=== PATIENT | male | born 1960 | race African-American/Black ===

== ENCOUNTER 2018-10-01 18:11 | Emergency (ER) | payer OTHER, MEDICAID, SELFPAY ==
[2018-10-01 18:27] VITALS: BP 146/101; PULSE 111; RESP 22; TEMP 36.7; O2SAT 98
--- NOTE | 2018-10-01 18:49 | ED.ABDPAIN ---
HPI - Abdominal Pain <MATHEUS Trejo Last Filed: 10/01/18 22:20> General Chief Complaint: Abdominal Pain Stated Complaint: severe pain on the right side Time Seen by Provider: 10/01/18 18:35 Source: patient Mode of arrival: ambulatory Limitations: no limitations History of Present Illness HPI narrative: this 57-year-old male comes to ED secondary to abdominal pain. He states that this seems fairly localized in the right lower quadrant. He states that it was tolerable the 1st couple of days, seemed to resolve yesterday, but now has come back with a vengeance today and he describes this as excruciating. He states that pain is a little bit better lying down, worse when moving and walking and present constantly. He states he has had a little bit of nausea but no vomiting (a just prior to arrival and has normal intake the last few days ). He denies fever. He denies any new urinary symptoms or hematuria. He denies diarrhea. He states that he maybe has had a little bit of constipation this week but had a bowel movement this morning. No blood in the stools. He denies chest pain, dyspnea, swelling in the extremities or other new complaints on systems review. Related Data Home Medications Medication Instructions Recorded Confirmed IBUPROFEN (Motrin / Advil) 600 mg PO #0 01/29/06 Naproxen Sodium (Naprosyn) 0 PO * DOSE/FREQUENCY #0 01/29/06 Previous Rx's Medication Instructions Recorded diazepam [Valium] 10 mg PO TIDP PRN #10 tab 12/16/16 meloxicam [Mobic] 7.5 mg PO BIDCC PRN #20 tab 12/16/16 amoxicillin-pot clavulanate 1 tab PO Q12H #20 tab 10/01/18 Allergies Allergy/AdvReac Type Severity Reaction Status Date / Time acetaminophen [From ROXICET] AdvReac Mild NAUSEA Verified 10/01/18 19:03 oxycodone [From ROXICET] AdvReac Mild NAUSEA Verified 10/01/18 19:03 Review of Systems <MATHEUS Trejo Last Filed: 10/01/18 22:20> Review of Systems ROS Unobtainable: All systems reviewed & are unremarkable except as noted in HPI and below PFSH <MATHEUS Trejo Last Filed: 10/01/18 22:20> Medical History History of osteoarthritis (Chronic) History of hepatitis C (Chronic) Surgical History Status post total replacement of hip (Chronic) Status post cervical spinal fusion (Chronic) Social History Smoking Status: Current every day smoker alcohol intake: current Social History Smoking Status: Current every day smoker alcohol intake: current Exam <Ava Chiang PA-C - Last Filed: 10/01/18 22:20> Initial Vital Signs Initial Vital Signs: Vital Signs Temperature 98.0 F 10/01/18 18:27 Pulse Rate 111 H 10/01/18 18:27 Respiratory Rate 22 10/01/18 18:27 Blood Pressure 146/101 H 10/01/18 18:27 Pulse Oximetry 98 10/01/18 18:27 GENERAL APPEARANCE: Patient sitting comfortably, in no distress. HEENT: PERRL, EOMI, no scleral icterus NECK: Supple LUNGS: Clear to auscultation bilaterally. HEART: Rate and rhythm regular, normal S1 and S2, no S3 or S4. ABDOMEN: Soft, nondistended, bowel sounds present x 4 quadrants, no masses palpable, no hepatosplenomegaly. moderate midline to right lower quadrant tenderness without guarding or rebound EXTREMITIES: No edema, no calf tenderness DERMATOLOGIC: No jaundice or exanthem NEUROLOGIC: Alert and oriented with normal speech and coordination <Ronnie Cordova MD - Last Filed: 10/02/18 04:42> Initial Vital Signs Initial Vital Signs: Vital Signs Temperature 98.0 F 10/01/18 18:27 Pulse Rate 111 H 10/01/18 18:27 Respiratory Rate 22 10/01/18 18:27 Blood Pressure 146/101 H 10/01/18 18:27 Pulse Oximetry 98 10/01/18 18:27 Course <Ava Chiang PA-C - Last Filed: 10/01/18 22:20> Additional Information: Patient reports significant improvement in symptoms and feels comfortable at the time of discharge. Reviewed lab work and CT findings with attending Dr. Cordova who suspects duodenitis, possibly viral but advised covering with antibiotics. First dose of Augmentin given here and patient was given a prescription. He agrees to call PCP 1st thing in the morning for follow-up. He agreed to return if any acutely worsening symptoms or new symptoms such as fever or vomiting in the interim. Orders Ordered: Discontinued Medications Amoxicillin/Clavulanate Potassium (Augmentin 875-125 Mg) 1 tab PO NOW ONE Stop: 10/01/18 21:01 Last Admin: 10/01/18 21:04 Dose: 1 tab Hydromorphone HCl (Dilaudid) 0.5 mg IV NOW ONE Stop: 10/01/18 19:41 Last Admin: 10/01/18 19:47 Dose: 0.5 mg Sodium Chloride (Normal Saline 0.9%) 500 mls @ 1,000 mls/hr IV BOLUS ONE Stop: 10/01/18 19:28 Last Infusion: 10/01/18 19:47 Dose: 0 mls/hr Admin: 10/01/18 19:08 Dose: 1,000 mls/hr Ketorolac Tromethamine (Toradol) 30 mg IV NOW ONE Stop: 10/01/18 19:00 Last Admin: 10/01/18 19:07 Dose: 30 mg Ondansetron HCl (Zofran) 4 mg IV NOW ONE Stop: 10/01/18 19:00 Last Admin: 10/01/18 19:07 Dose: 4 mg Vital Signs - 8 hr 10/01/18 21:13 10/01/18 21:31 Temperature 98.3 F Pulse Rate 106 H 105 H Respiratory Rate 17 18 Blood Pressure 135/88 Blood Pressure [Left Arm] 135/88 Pulse Oximetry 94 94 <Ronnie Cordova MD - Last Filed: 10/02/18 04:42> Orders Ordered: Discontinued Medications Amoxicillin/Clavulanate Potassium (Augmentin 875-125 Mg) 1 tab PO NOW ONE Stop: 10/01/18 21:01 Last Admin: 10/01/18 21:04 Dose: 1 tab Hydromorphone HCl (Dilaudid) 0.5 mg IV NOW ONE Stop: 10/01/18 19:41 Last Admin: 10/01/18 19:47 Dose: 0.5 mg Sodium Chloride (Normal Saline 0.9%) 500 mls @ 1,000 mls/hr IV BOLUS ONE Stop: 10/01/18 19:28 Last Infusion: 10/01/18 19:47 Dose: 0 mls/hr Admin: 10/01/18 19:08 Dose: 1,000 mls/hr Ketorolac Tromethamine (Toradol) 30 mg IV NOW ONE Stop: 10/01/18 19:00 Last Admin: 10/01/18 19:07 Dose: 30 mg Ondansetron HCl (Zofran) 4 mg IV NOW ONE Stop: 10/01/18 19:00 Last Admin: 10/01/18 19:07 Dose: 4 mg Vital Signs - 8 hr 10/01/18 21:13 10/01/18 21:31 Temperature 98.3 F Pulse Rate 106 H 105 H Respiratory Rate 17 18 Blood Pressure 135/88 Blood Pressure [Left Arm] 135/88 Pulse Oximetry 94 94 MDM - Abdominal Pain <Ava Chiang PA-C - Last Filed: 10/01/18 22:20> Lab Data Result diagrams: 10/01/18 19:01 10/01/18 19:01 Lab Results 10/01/18 10/01/18 Range/Units 19:01 19:01 WBC 6.4 (4.5-11.0) X10^3/uL RBC 4.78 (4.5-5.9) X10^6/uL Hgb 14.6 (13.5-17.5) g/dL Hct 44.4 (41-53) % MCV 93.0 (80-100) fL MCH 30.6 (26-34) PG MCHC 32.9 (30-36) % RDW 13.6 (11.6-14.8) % Plt Count 219 (150-400) X10^3/uL Neut % (Auto) Not Reportable Lymph % (Auto) Not Reportable [place] % (Auto) Not Reportable Eos % (Auto) Not Reportable Baso % (Auto) Not Reportable Lymph # (Auto) Not Reportable [place] # (Auto) Not Reportable Baso # (Auto) Not Reportable Total Counted 100 Seg Neutrophils % 43.0 (38-70) % Lymphocytes % (Manual) 39.0 (25-45) % Atypical Lymphs % 9.0 H ( - 0) % Monocytes % (Manual) 6.0 (2-11) % Eosinophils % (Manual) 3.0 (2-4) % Neutrophils # (Manual) 2752 L (7324-8786) /uL RBC Morphology Normal morphology Sodium 138 (137-145) mmol/L Potassium 3.7 (3.4-5.1) mmol/L Chloride 102 (98-107) mmol/L Carbon Dioxide 27 (22-32) mmol/L BUN 18 (9-20) mg/dL Creatinine 0.90 (0.66-1.25) mg/dL Estimated GFR > 60.0 (>60) mL/min BUN/Creatinine Ratio 20.0 (6-22) Glucose 141 H (70-100) mg/dL Calcium 9.1 (8.4-10.2) mg/dL Total Bilirubin 0.9 (0.2-1.3) mg/dL AST 70 H (17-59) IU/L ALT 59 (21-72) IU/L Alkaline Phosphatase 77 (38-126) U/L Total Protein 7.8 (6.3-8.2) g/dL Albumin 4.4 (3.5-5.0) g/dL Globulin 3.4 (1.7-4.1) g/dL Albumin/Globulin Ratio 1.3 (1.0-2.8) Lipase 23 (23-300) U/L Imaging Data CT scan - abdomen: Radiologist's impression: 31 Ava Chiang PA-C Find Patient Imaging Felipe Miller 57 M 1960 ACTIVITY DATE EXAM STATUS AUTHOR 10/01/18 19:00 [place] [address] CT Scan Report Signed Patient: Felipe Miller [facility]#: [id number] : 1960Acct:[id number] Age/Sex: 57 / MDate of Service: 10/01/18 Loc: ED Accession Number: [id number] Procedure: CT abdomen pelvis w con Ordering Provider: Ava Chiang P.A-C PROCEDURE: CT ABDOMEN PELVIS W CON INDICATIONS: RLQ pain TECHNIQUE: After the administration of intravenous contrast, 5 mm thick sections acquired from the diaphragm to the symphysis. 5 mm coronal and sagittal reformats were acquired. For radiation dose reduction, the following was used: automated exposure control, adjustment of mA and/or kV according to patient size. COMPARISON: None. FINDINGS: Image quality: Excellent. ABDOMEN: Lung bases: Lung bases are clear. Heart size is normal. Solid organs: Liver is normal in size and enhancement. Gallbladder is within normal limits. Biliary system is non dilated. Pancreas enhances normally. Spleen is normal in size and enhancement. No adrenal nodules. Kidneys demonstrate normal size and enhancement, without hydronephrosis. Peritoneum and bowel: Evaluation is limited secondary to omission of oral contrast. There is possible small bowel thickening within the duodenum and proximal small bowel within the left hemiabdomen.. No free fluid or air. Normal appendix. Nodes and vessels: No retroperitoneal or mesenteric adenopathy by size criteria. Aorta and inferior vena cava are normal in size. Miscellaneous: No ventral hernias. PELVIS: Genitourinary: Bladder wall thickness is normal. Miscellaneous: No inguinal hernias or adenopathy. Bones: No suspicious bony lesions. Severe right and mild left hip joint osteoarthritis. Bilateral L5-S1 pars interarticularis defects. Grade 1 anterolisthesis of L5 on S1. No vertebral body compression fractures. IMPRESSION: 1. Limited evaluation secondary to lack of oral contrast. 2. Normal appendix. 3. Small bowel thickening versus nondistention. Differential considerations include ischemia, infection, and inflammation. 4. Grade I isthmic spondylolisthesis at L5-S1. Dictated by: Saranya Hernandez M.D. on 10/01/2018 at 20:15 Approved by: Saranya Hernandez M.D. on 10/01/2018 at 20:17 <Ronnie Cordova MD - Last Filed: 10/02/18 04:42> Lab Data Lab Results 10/01/18 10/01/18 Range/Units 19:01 19:01 WBC 6.4 (4.5-11.0) X10^3/uL RBC 4.78 (4.5-5.9) X10^6/uL Hgb 14.6 (13.5-17.5) g/dL Hct 44.4 (41-53) % MCV 93.0 (80-100) fL MCH 30.6 (26-34) PG MCHC 32.9 (30-36) % RDW 13.6 (11.6-14.8) % Plt Count 219 (150-400) X10^3/uL Neut % (Auto) Not Reportable Lymph % (Auto) Not Reportable [place] % (Auto) Not Reportable Eos % (Auto) Not Reportable Baso % (Auto) Not Reportable Lymph # (Auto) Not Reportable [place] # (Auto) Not Reportable Baso # (Auto) Not Reportable Total Counted 100 Seg Neutrophils % 43.0 (38-70) % Lymphocytes % (Manual) 39.0 (25-45) % Atypical Lymphs % 9.0 H ( - 0) % Monocytes % (Manual) 6.0 (2-11) % Eosinophils % (Manual) 3.0 (2-4) % Neutrophils # (Manual) 2752 L (4130-7426) /uL RBC Morphology Normal morphology Sodium 138 (137-145) mmol/L Potassium 3.7 (3.4-5.1) mmol/L Chloride 102 (98-107) mmol/L Carbon Dioxide 27 (22-32) mmol/L BUN 18 (9-20) mg/dL Creatinine 0.90 (0.66-1.25) mg/dL Estimated GFR > 60.0 (>60) mL/min BUN/Creatinine Ratio 20.0 (6-22) Glucose 141 H (70-100) mg/dL Calcium 9.1 (8.4-10.2) mg/dL Total Bilirubin 0.9 (0.2-1.3) mg/dL AST 70 H (17-59) IU/L ALT 59 (21-72) IU/L Alkaline Phosphatase 77 (38-126) U/L Total Protein 7.8 (6.3-8.2) g/dL Albumin 4.4 (3.5-5.0) g/dL Globulin 3.4 (1.7-4.1) g/dL Albumin/Globulin Ratio 1.3 (1.0-2.8) Lipase 23 (23-300) U/L Discharge Plan Departure Patient Disposition: Home Clinical Impression: Acute duodenitis Discharge Date/Time: 10/01/18 21:33 Interventions: ED Discharge Assessment Last Done: 10/01/18 21:31 Instructions: DI for Duodenitis Activity Restrictions/Additional Instructions: please return if you have any acute worsening symptoms again, i.e. acutely worsening pain, or new symptoms such as fever or vomiting. We have given you the 1st dose of oral antibiotic tonight. Please pick the rest up 1st thing in the morning when the pharmacy opens ( I have sent it to [facility] in [place] for you). Please call your PCP 1st thing in the morning and let them know you were seen in the ED tonight with abdominal pain and need to be seen for follow-up, as we prefer repeat exams of abdominal pain daily. You can take [id number] Aleve or ibuprofen (2 tablets of Aleve every 12 hr or 4 tablets of ibuprofen every 8 hr is equivalent to prescription dosing ). Please drink clear fluids and eat a very bland diet, i.e. bananas, rice, applesauce, white toast, clear broths Prescriptions: New amoxicillin-pot clavulanate 875-125 mg tablet 1 tab PO Q12H Qty: 20 RF: 0 No Action IBUPROFEN (Motrin / Advil) 600 mg PO Qty: 0 RF: 0 Naproxen Sodium (Naprosyn) PO *[place] DOSE/FREQUENCY Qty: 0 RF: 0 meloxicam [Mobic] 7.5 MG tablet 7.5 mg PO BIDCC PRNQty: 20 RF: 0 diazepam [Valium] 10 MG tablet 10 mg PO TIDP PRNQty: 10 RF: 0 Referrals: Patrica Martinez [Non-Staff] - <Ronnie Cordova MD - Last Filed: 10/02/18 04:42> Cosign ED Attending Cosreynaature Attestation: I was in the ER at the time of this patient's care. I was available for assistance if needed. I agree with the assessment and treatment plan.
--- NOTE | 2018-10-01 19:00 | DI.CT.S_ITS ---
PROCEDURE: CT ABDOMEN PELVIS W CON INDICATIONS: RLQ pain TECHNIQUE: After the administration of intravenous contrast, 5 mm thick sections acquired from the diaphragm to the symphysis. 5 mm coronal and sagittal reformats were acquired. For radiation dose reduction, the following was used: automated exposure control, adjustment of mA and/or kV according to patient size. COMPARISON: None. FINDINGS: Image quality: Excellent. ABDOMEN: Lung bases: Lung bases are clear. Heart size is normal. Solid organs: Liver is normal in size and enhancement. Gallbladder is within normal limits. Biliary system is non dilated. Pancreas enhances normally. Spleen is normal in size and enhancement. No adrenal nodules. Kidneys demonstrate normal size and enhancement, without hydronephrosis. Peritoneum and bowel: Evaluation is limited secondary to omission of oral contrast. There is possible small bowel thickening within the duodenum and proximal small bowel within the left hemiabdomen.. No free fluid or air. Normal appendix. Nodes and vessels: No retroperitoneal or mesenteric adenopathy by size criteria. Aorta and inferior vena cava are normal in size. Miscellaneous: No ventral hernias. PELVIS: Genitourinary: Bladder wall thickness is normal. Miscellaneous: No inguinal hernias or adenopathy. Bones: No suspicious bony lesions. Severe right and mild left hip joint osteoarthritis. Bilateral L5-S1 pars interarticularis defects. Grade 1 anterolisthesis of L5 on S1. No vertebral body compression fractures. IMPRESSION: 1. Limited evaluation secondary to lack of oral contrast. 2. Normal appendix. 3. Small bowel thickening versus nondistention. Differential considerations include ischemia, infection, and inflammation. 4. Grade I isthmic spondylolisthesis at L5-S1. Dictated by: Saranya Hernandez M.D. on 10/01/2018 at 20:15 Approved by: Saranya Hernandez M.D. on 10/01/2018 at 20:17
[2018-10-01] MEDS: ONDANSETRON 4 MG/2 ML INJ IV (19:07)
[2018-10-01] MEDS: KETOROLAC 60 MG/2 ML VIAL 30 MG IV (19:07)
--- NOTE | 2018-10-01 19:07 | ED_ITS ---
HPI - Abdominal Pain <MATHEUS Trejo Last Filed: 10/01/18 22:20> General Chief Complaint: Abdominal Pain Stated Complaint: severe pain on the right side Time Seen by Provider: 10/01/18 18:35 Source: patient Mode of arrival: ambulatory Limitations: no limitations History of Present Illness HPI narrative: this 57-year-old male comes to ED secondary to abdominal pain. He states that this seems fairly localized in the right lower quadrant. He states that it was tolerable the 1st couple of days, seemed to resolve yesterday, but now has come back with a vengeance today and he describes this as excruciating. He states that pain is a little bit better lying down, worse when moving and walking and present constantly. He states he has had a little bit of nausea but no vomiting (a just prior to arrival and has normal intake the last few days ). He denies fever. He denies any new urinary symptoms or hematuria. He denies diarrhea. He states that he maybe has had a little bit of constipation this week but had a bowel movement this morning. No blood in the stools. He denies chest pain, dyspnea, swelling in the extremities or other new complaints on systems review. Related Data Home Medications Medication Instructions Recorded Confirmed IBUPROFEN (Motrin / Advil) 600 mg PO #0 01/29/06 Naproxen Sodium (Naprosyn) 0 PO * DOSE/FREQUENCY #0 01/29/06 Previous Rx's Medication Instructions Recorded diazepam [Valium] 10 mg PO TIDP PRN #10 tab 12/16/16 meloxicam [Mobic] 7.5 mg PO BIDCC PRN #20 tab 12/16/16 amoxicillin-pot clavulanate 1 tab PO Q12H #20 tab 10/01/18 Allergies Allergy/AdvReac Type Severity Reaction Status Date / Time acetaminophen [From ROXICET] AdvReac Mild NAUSEA Verified 10/01/18 19:03 oxycodone [From ROXICET] AdvReac Mild NAUSEA Verified 10/01/18 19:03 Review of Systems <MATHEUS Trejo Last Filed: 10/01/18 22:20> Review of Systems ROS Unobtainable: All systems reviewed & are unremarkable except as noted in HPI and below PFSH <MATHEUS Trejo Last Filed: 10/01/18 22:20> Medical History History of osteoarthritis (Chronic) History of hepatitis C (Chronic) Surgical History Status post total replacement of hip (Chronic) Status post cervical spinal fusion (Chronic) Social History Smoking Status: Current every day smoker alcohol intake: current Social History Smoking Status: Current every day smoker alcohol intake: current Exam <Ava Chiang PA-C - Last Filed: 10/01/18 22:20> Initial Vital Signs Initial Vital Signs: Vital Signs Temperature 98.0 F 10/01/18 18:27 Pulse Rate 111 H 10/01/18 18:27 Respiratory Rate 22 10/01/18 18:27 Blood Pressure 146/101 H 10/01/18 18:27 Pulse Oximetry 98 10/01/18 18:27 GENERAL APPEARANCE: Patient sitting comfortably, in no distress. HEENT: PERRL, EOMI, no scleral icterus NECK: Supple LUNGS: Clear to auscultation bilaterally. HEART: Rate and rhythm regular, normal S1 and S2, no S3 or S4. ABDOMEN: Soft, nondistended, bowel sounds present x 4 quadrants, no masses palpable, no hepatosplenomegaly. moderate midline to right lower quadrant tenderness without guarding or rebound EXTREMITIES: No edema, no calf tenderness DERMATOLOGIC: No jaundice or exanthem NEUROLOGIC: Alert and oriented with normal speech and coordination <Ronnie Cordova MD - Last Filed: 10/02/18 04:42> Initial Vital Signs Initial Vital Signs: Vital Signs Temperature 98.0 F 10/01/18 18:27 Pulse Rate 111 H 10/01/18 18:27 Respiratory Rate 22 10/01/18 18:27 Blood Pressure 146/101 H 10/01/18 18:27 Pulse Oximetry 98 10/01/18 18:27 Course <Ava Chiang PA-C - Last Filed: 10/01/18 22:20> Additional Information: Patient reports significant improvement in symptoms and feels comfortable at the time of discharge. Reviewed lab work and CT findings with attending Dr. Cordova who suspects duodenitis, possibly viral but advised covering with antibiotics. First dose of Augmentin given here and patient was given a prescription. He agrees to call PCP 1st thing in the morning for follow-up. He agreed to return if any acutely worsening symptoms or new symptoms such as fever or vomiting in the interim. Orders Ordered: Discontinued Medications Amoxicillin/Clavulanate Potassium (Augmentin 875-125 Mg) 1 tab PO NOW ONE Stop: 10/01/18 21:01 Last Admin: 10/01/18 21:04 Dose: 1 tab Hydromorphone HCl (Dilaudid) 0.5 mg IV NOW ONE Stop: 10/01/18 19:41 Last Admin: 10/01/18 19:47 Dose: 0.5 mg Sodium Chloride (Normal Saline 0.9%) 500 mls @ 1,000 mls/hr IV BOLUS ONE Stop: 10/01/18 19:28 Last Infusion: 10/01/18 19:47 Dose: 0 mls/hr Admin: 10/01/18 19:08 Dose: 1,000 mls/hr Ketorolac Tromethamine (Toradol) 30 mg IV NOW ONE Stop: 10/01/18 19:00 Last Admin: 10/01/18 19:07 Dose: 30 mg Ondansetron HCl (Zofran) 4 mg IV NOW ONE Stop: 10/01/18 19:00 Last Admin: 10/01/18 19:07 Dose: 4 mg Vital Signs - 8 hr 10/01/18 21:13 10/01/18 21:31 Temperature 98.3 F Pulse Rate 106 H 105 H Respiratory Rate 17 18 Blood Pressure 135/88 Blood Pressure [Left Arm] 135/88 Pulse Oximetry 94 94 <Ronnie Cordova MD - Last Filed: 10/02/18 04:42> Orders Ordered: Discontinued Medications Amoxicillin/Clavulanate Potassium (Augmentin 875-125 Mg) 1 tab PO NOW ONE Stop: 10/01/18 21:01 Last Admin: 10/01/18 21:04 Dose: 1 tab Hydromorphone HCl (Dilaudid) 0.5 mg IV NOW ONE Stop: 10/01/18 19:41 Last Admin: 10/01/18 19:47 Dose: 0.5 mg Sodium Chloride (Normal Saline 0.9%) 500 mls @ 1,000 mls/hr IV BOLUS ONE Stop: 10/01/18 19:28 Last Infusion: 10/01/18 19:47 Dose: 0 mls/hr Admin: 10/01/18 19:08 Dose: 1,000 mls/hr Ketorolac Tromethamine (Toradol) 30 mg IV NOW ONE Stop: 10/01/18 19:00 Last Admin: 10/01/18 19:07 Dose: 30 mg Ondansetron HCl (Zofran) 4 mg IV NOW ONE Stop: 10/01/18 19:00 Last Admin: 10/01/18 19:07 Dose: 4 mg Vital Signs - 8 hr 10/01/18 21:13 10/01/18 21:31 Temperature 98.3 F Pulse Rate 106 H 105 H Respiratory Rate 17 18 Blood Pressure 135/88 Blood Pressure [Left Arm] 135/88 Pulse Oximetry 94 94 MDM - Abdominal Pain <Ava Chiang PA-C - Last Filed: 10/01/18 22:20> Lab Data Result diagrams: 10/01/18 19:01 10/01/18 19:01 Lab Results 10/01/18 10/01/18 Range/Units 19:01 19:01 WBC 6.4 (4.5-11.0) X10^3/uL RBC 4.78 (4.5-5.9) X10^6/uL Hgb 14.6 (13.5-17.5) g/dL Hct 44.4 (41-53) % MCV 93.0 (80-100) fL MCH 30.6 (26-34) PG MCHC 32.9 (30-36) % RDW 13.6 (11.6-14.8) % Plt Count 219 (150-400) X10^3/uL Neut % (Auto) Not Reportable Lymph % (Auto) Not Reportable Towns % (Auto) Not Reportable Eos % (Auto) Not Reportable Baso % (Auto) Not Reportable Lymph # (Auto) Not Reportable [place] # (Auto) Not Reportable Baso # (Auto) Not Reportable Total Counted 100 Seg Neutrophils % 43.0 (38-70) % Lymphocytes % (Manual) 39.0 (25-45) % Atypical Lymphs % 9.0 H ( - 0) % Monocytes % (Manual) 6.0 (2-11) % Eosinophils % (Manual) 3.0 (2-4) % Neutrophils # (Manual) 2752 L (4342-8231) /uL RBC Morphology Normal morphology Sodium 138 (137-145) mmol/L Potassium 3.7 (3.4-5.1) mmol/L Chloride 102 (98-107) mmol/L Carbon Dioxide 27 (22-32) mmol/L BUN 18 (9-20) mg/dL Creatinine 0.90 (0.66-1.25) mg/dL Estimated GFR > 60.0 (>60) mL/min BUN/Creatinine Ratio 20.0 (6-22) Glucose 141 H (70-100) mg/dL Calcium 9.1 (8.4-10.2) mg/dL Total Bilirubin 0.9 (0.2-1.3) mg/dL AST 70 H (17-59) IU/L ALT 59 (21-72) IU/L Alkaline Phosphatase 77 (38-126) U/L Total Protein 7.8 (6.3-8.2) g/dL Albumin 4.4 (3.5-5.0) g/dL Globulin 3.4 (1.7-4.1) g/dL Albumin/Globulin Ratio 1.3 (1.0-2.8) Lipase 23 (23-300) U/L Imaging Data CT scan - abdomen: Radiologist's impression: 31 Ava Chiang PA-C Find Patient Imaging Felipe Miller 57 M 1960 ACTIVITY DATE EXAM STATUS AUTHOR 10/01/18 19:00 [place] [address] CT Scan Report Signed Patient: Felipe Miller [facility]#: [id number] : 1960Acct:[id number] Age/Sex: 57 / MDate of Service: 10/01/18 Loc: ED Accession Number: [id number] Procedure: CT abdomen pelvis w con Ordering Provider: Ava Chiang P.A-C PROCEDURE: CT ABDOMEN PELVIS W CON INDICATIONS: RLQ pain TECHNIQUE: After the administration of intravenous contrast, 5 mm thick sections acquired from the diaphragm to the symphysis. 5 mm coronal and sagittal reformats were acquired. For radiation dose reduction, the following was used: automated exposure control, adjustment of mA and/or kV according to patient size. COMPARISON: None. FINDINGS: Image quality: Excellent. ABDOMEN: Lung bases: Lung bases are clear. Heart size is normal. Solid organs: Liver is normal in size and enhancement. Gallbladder is within normal limits. Biliary system is non dilated. Pancreas enhances normally. Spleen is normal in size and enhancement. No adrenal nodules. Kidneys demonstrate normal size and enhancement, without hydronephrosis. Peritoneum and bowel: Evaluation is limited secondary to omission of oral contrast. There is possible small bowel thickening within the duodenum and proximal small bowel within the left hemiabdomen.. No free fluid or air. Normal appendix. Nodes and vessels: No retroperitoneal or mesenteric adenopathy by size criteria. Aorta and inferior vena cava are normal in size. Miscellaneous: No ventral hernias. PELVIS: Genitourinary: Bladder wall thickness is normal. Miscellaneous: No inguinal hernias or adenopathy. Bones: No suspicious bony lesions. Severe right and mild left hip joint osteoarthritis. Bilateral L5-S1 pars interarticularis defects. Grade 1 anterolisthesis of L5 on S1. No vertebral body compression fractures. IMPRESSION: 1. Limited evaluation secondary to lack of oral contrast. 2. Normal appendix. 3. Small bowel thickening versus nondistention. Differential considerations include ischemia, infection, and inflammation. 4. Grade I isthmic spondylolisthesis at L5-S1. Dictated by: Saranya Hernandez M.D. on 10/01/2018 at 20:15 Approved by: Saranya Hernandez M.D. on 10/01/2018 at 20:17 <Ronnie Cordova MD - Last Filed: 10/02/18 04:42> Lab Data Lab Results 10/01/18 10/01/18 Range/Units 19:01 19:01 WBC 6.4 (4.5-11.0) X10^3/uL RBC 4.78 (4.5-5.9) X10^6/uL Hgb 14.6 (13.5-17.5) g/dL Hct 44.4 (41-53) % MCV 93.0 (80-100) fL MCH 30.6 (26-34) PG MCHC 32.9 (30-36) % RDW 13.6 (11.6-14.8) % Plt Count 219 (150-400) X10^3/uL Neut % (Auto) Not Reportable Lymph % (Auto) Not Reportable Towns % (Auto) Not Reportable Eos % (Auto) Not Reportable Baso % (Auto) Not Reportable Lymph # (Auto) Not Reportable Towns # (Auto) Not Reportable Baso # (Auto) Not Reportable Total Counted 100 Seg Neutrophils % 43.0 (38-70) % Lymphocytes % (Manual) 39.0 (25-45) % Atypical Lymphs % 9.0 H ( - 0) % Monocytes % (Manual) 6.0 (2-11) % Eosinophils % (Manual) 3.0 (2-4) % Neutrophils # (Manual) 2752 L (0330-4895) /uL RBC Morphology Normal morphology Sodium 138 (137-145) mmol/L Potassium 3.7 (3.4-5.1) mmol/L Chloride 102 (98-107) mmol/L Carbon Dioxide 27 (22-32) mmol/L BUN 18 (9-20) mg/dL Creatinine 0.90 (0.66-1.25) mg/dL Estimated GFR > 60.0 (>60) mL/min BUN/Creatinine Ratio 20.0 (6-22) Glucose 141 H (70-100) mg/dL Calcium 9.1 (8.4-10.2) mg/dL Total Bilirubin 0.9 (0.2-1.3) mg/dL AST 70 H (17-59) IU/L ALT 59 (21-72) IU/L Alkaline Phosphatase 77 (38-126) U/L Total Protein 7.8 (6.3-8.2) g/dL Albumin 4.4 (3.5-5.0) g/dL Globulin 3.4 (1.7-4.1) g/dL Albumin/Globulin Ratio 1.3 (1.0-2.8) Lipase 23 (23-300) U/L Discharge Plan Departure Patient Disposition: Home Clinical Impression: Acute duodenitis Discharge Date/Time: 10/01/18 21:33 Interventions: ED Discharge Assessment Last Done: 10/01/18 21:31 Instructions: DI for Duodenitis Activity Restrictions/Additional Instructions: please return if you have any acute worsening symptoms again, i.e. acutely w orsening pain, or new symptoms such as fever or vomiting. We have given you the 1st dose of oral antibiotic tonight. Please pick the rest up 1st thing in the morning when the pharmacy opens ( I have sent it to [facility] in [place] for you). Please call your PCP 1st thing in the morning and let them know you were seen in the ED tonight with abdominal pain and need to be seen for follow-up, as we prefer repeat exams of abdominal pain daily. You can take [id number]-[id number] Aleve or ibuprofen (2 tablets of Aleve every 12 hr or 4 tablets of ibuprofen every 8 hr is equivalent to prescription dosing ). Please drink clear fluids and eat a very bland diet, i.e. bananas, rice, applesauce, white toast, clear broths Prescriptions: New amoxicillin-pot clavulanate 875-125 mg tablet 1 tab PO Q12H Qty: 20 RF: 0 No Action IBUPROFEN (Motrin / Advil) 600 mg PO Qty: 0 RF: 0 Naproxen Sodium (Naprosyn) PO *UK DOSE/FREQUENCY Qty: 0 RF: 0 meloxicam [Mobic] 7.5 MG tablet 7.5 mg PO BIDCC PRNQty: 20 RF: 0 diazepam [Valium] 10 MG tablet 10 mg PO TIDP PRNQty: 10 RF: 0 Referrals: Patrica Martinez [Non-Staff] - <Ronnie Cordova MD - Last Filed: 10/02/18 04:42> Cosign ED Attending Cosreynaature Attestation: I was in the ER at the time of this patient's care. I was available for assistance if needed. I agree with the assessment and treatment plan.
[2018-10-01] MEDS: SODIUM CHLORIDE 0.9% 500 ML 1000 ML IV (19:08)
[2018-10-01 19:20] LABS: Add Manual Diff / Slide Review YES; Hematocrit 44.4 % (41-53); Hemoglobin 14.6 g/dL (13.5-17.5); Mean Corpuscular HGB Conc 32.9 % (30-36); Mean Corpuscular Hemoglobin 30.6 PG (26-34); Platelet Count 219 X10^3/uL (150-400); Red Blood Cell Count 4.78 X10^6/uL (4.5-5.9); Red Cell Distribution Width 13.6 % (11.6-14.8); White Blood Cell Count 6.4 X10^3/uL (4.5-11.0)
[2018-10-01 19:30] VITALS: BP 142/94; PULSE 108; RESP 21; O2SAT 97
[2018-10-01 19:38] LABS: Neutrophils Absolute Manual 2752 /uL (3000-5900); Total Cells Counted 100
[2018-10-01 19:39] LABS: Alanine Aminotransferase 59 IU/L (21-72); Albumin 4.4 g/dL (3.5-5.0); Albumin Globulin Ratio 1.3 (1.0-2.8); Alkaline Phosphatase 77 U/L (38-126); Aspartate Aminotransferase 70 IU/L (17-59); Bilirubin Total 0.9 mg/dL (0.2-1.3); Blood Urea Nitrogen 18 mg/dL (9-20); Calcium 9.1 mg/dL (8.4-10.2); Carbon Dioxide 27 mmol/L (22-32); Chloride 102 mmol/L (98-107); Estimated Glomerular Filt Rate > 60.0 mL/min (>60); Globulin 3.4 g/dL (1.7-4.1); Glucose 141 mg/dL (70-100); HEMOLYSIS 30 (0-50); Lipase 23 U/L (23-300); Potassium 3.7 mmol/L (3.4-5.1); Sodium 138 mmol/L (137-145); Total Protein 7.8 g/dL (6.3-8.2)
[2018-10-01 19:40] LABS: RBC Morphology Normal Morphology
[2018-10-01] MEDS: HYDROMORPHONE 1 MG INJ 0.5 MG IV (19:47)
[2018-10-01] MEDS: AMOXICILLIN/CLAV 875/125 MG 1 TAB PO (21:04)
[2018-10-01 21:13] VITALS: BP 135/88; PULSE 106; RESP 17; O2SAT 94
[2018-10-01 21:31] VITALS: BP 135/88; PULSE 105; RESP 18; TEMP 36.8; O2SAT 94
== END 2018-10-01 21:33 | disposition home or self-care (01) ==
PROVIDERS: Emergency Provider Internal Medicine
DX: K29.80 Duodenitis without bleeding (principal)
CPT/HCPCS: 36591; 74177; 80053; 83690; 85025; 96361; 96374; 96375; 99283; 99285; J1170; J1885; J2405; Q9967

== ENCOUNTER 2024-02-08 20:48 | Emergency (ER) | payer OTHER, MEDICAID, SELFPAY ==
[2024-02-08 20:53] VITALS: BP 125/87; PULSE 121; RESP 22; TEMP 37.2; O2SAT 90; BMI 21.4
[2024-02-08 21:00] VITALS: O2SAT 86
--- NOTE | 2024-02-08 21:01 | DI.RAD.S_ITS ---
PROCEDURE: XR CHEST 1V INDICATIONS: Shortness of breath TECHNIQUE: One view of the chest was acquired. COMPARISON: [facility], CR, XR CHEST 1 VIEW, 12/01/2023, 16:02. [facility], CR, XR CHEST 1 VIEW, 12/07/2023, 20:12. FINDINGS: Surgical changes and devices: Cervical fusion hardware Lungs and pleura: No new dense consolidation or pleural effusion. Low lung volumes. Mediastinum: Fullness of the abby, similar to recent radiographs. Normal heart size Bones and chest wall: Degenerative changes. Unchanged widening of the right AC interval IMPRESSION: No acute radiographic changes. No dense airspace disease or pleural effusion on this single view study. Moderate fullness of the abby, similar to recent prior radiographs, not well evaluated on this study. Dictated by: Natanael Cornell M.D. on 02/08/2024 at 21:27 Approved by: Natanael Cornell M.D. on 02/08/2024 at 21:29
--- NOTE | 2024-02-08 21:13 | EKG_ITS ---
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
[2024-02-08 21:19] LABS: Add Manual Diff / Slide Review NO; Basophils Absolute Auto 0 /uL (0-100); Basophils Percent Auto 0.4 % (0-2); Eosinophils Absolute Auto 1100 /uL (0-450); Eosinophils Percent Auto 12.5 % (2-4); Hematocrit 52.8 % (41-53); Hemoglobin 16.8 g/dL (13.5-17.5); Lymphocytes Absolute Auto 4200 /uL (1100-4500); Lymphocytes Percent Auto 49.7 % (25-40); Mean Corpuscular HGB Conc 31.8 % (30-36); Mean Corpuscular Hemoglobin 30.9 PG (26-34); Mean Corpuscular Volume 97.2 fL (80-100); Monocytes Absolute Auto 800 /uL (0-900); Monocytes Percent Auto 9.1 % (3-14); Neutrophils Absolute Auto 2400 /uL (1500-7000); Neutrophils Percent Auto 28.3 % (50-75); Platelet Count 168 X10^3/uL (150-400); Red Blood Cell Count 5.44 X10^6/uL (4.5-5.9); Red Cell Distribution Width 14.9 % (11.6-14.8); White Blood Cell Count 8.4 X10^3/uL (4.5-11.0)
[2024-02-08 21:23] VITALS: O2SAT 90
[2024-02-08 21:26] LABS: Prothrombin Time 11.3 SECONDS (9.4-12.5)
[2024-02-08 21:30] LABS: Lactate (Lactic Acid) 2.1 mmol/L (0.7-2.1)
[2024-02-08 21:31] LABS: Alanine Aminotransferase 56 IU/L (<50); Albumin 4.2 g/dL (3.5-5.0); Albumin Globulin Ratio 1.4 (1.0-2.8); Alkaline Phosphatase 70 U/L (38-126); Aspartate Aminotransferase 90 IU/L (17-59); BUN Creatinine Ratio 28.3 (6-22); Bilirubin Total 0.9 mg/dL (0.2-1.3); Blood Urea Nitrogen 26 mg/dL (9-20); Calcium 9.6 mg/dL (8.4-10.2); Carbon Dioxide 36 mmol/L (22-32); Chloride 99 mmol/L (98-107); Estimated Glomerular Filt Rate > 60 mL/min (>60); Glucose 108 mg/dL (80-110); HEMOLYSIS 33 (0-50); Potassium 4.2 mmol/L (3.4-5.1); Sodium 139 mmol/L (137-145); Total Protein 7.2 g/dL (6.3-8.2)
[2024-02-08 21:42] LABS: NT-proBNP (BNP-Adult 18+) 1320 pg/mL (<125); Troponin I 0.068 ng/mL (0.01-0.034)
--- NOTE | 2024-02-08 22:25 | ED.RECABL ---
HPI - Recheck/Abnormal Lab/Rx General Chief Complaint: Recheck/Abnormal Lab/Rx Stated Complaint: low oxygen, hx COPD Time Seen by Provider: 02/08/24 21:58 Source: patient Mode of arrival: Family Vehicle History of Present Illness HPI narrative: 63-year-old male with history of COPD, polysubstance use disorder presents trying to see if he can get a portable oxygen machine. Patient has been trying to get into detox for his polysubstance use, but was turned down due to his COPD. He was told that he would need a medical clearance order from his primary doctor as well as a portable oxygen machine. Patient states that he has a note from his doctor about the clearance, but he was not been able to obtain a portable oxygen machine. He was also requesting prednisone as this ?clears me up?, as well as an antibiotic ointment for an ongoing left eye infection that he has been dealing with for the last week. Related Data Home Medications Medication Instructions Recorded Confirmed IBUPROFEN (Motrin / Advil) 600 mg PO ##0 01/29/06 Naproxen Sodium (Naprosyn) 0 PO * DOSE/FREQUENCY ##0 01/29/06 Previous Rx's Medication Instructions Recorded diazepam 10 mg tablet (Valium) 10 mg PO TIDP PRN #10 tabs 12/16/16 meloxicam 7.5 mg tablet (Mobic) 7.5 mg PO BIDCC PRN #20 tabs 12/16/16 amoxicillin 875 mg-potassium 1 tab PO Q12H #20 tabs 10/01/18 clavulanate 125 mg tablet azithromycin 250 mg tablet See Rx Instructions PO .COMPLEX #6 02/08/24 tabs erythromycin 5 mg/gram (0.5 %) eye 0.5 inch EYE-LEFT QID #3.5 grams 02/08/24 ointment fluticasone 500 mcg-salmeterol 50 1 inh inhalation Q12H #60 ea 02/08/24 mcg/dose blistr powdr for inhalation (Advair Diskus) prednisone 20 mg tablet 40 mg (2 x 20 mg) PO DAILY #10 tabs 02/08/24 Allergies Allergy/AdvReac Type Severity Reaction Status Date / Time acetaminophen [From ROXICET] AdvReac Mild NAUSEA Verified 10/01/18 19:03 oxycodone [From ROXICET] AdvReac Mild NAUSEA Verified 10/01/18 19:03 Patient History Medical History History of osteoarthritis History of hepatitis C Surgical History Status post total replacement of hip Status post cervical spinal fusion Social History Smoking Status: Current every day smoker alcohol intake: current Smoking Status: Current every day smoker tobacco type: cigarettes alcohol intake frequency: 0-2 drinks per day Alcohol type: beer and hard liquor Substance Use Type: marijuana, crack/cocaine, amphetamines and methamphetamine Exam Initial Vital Signs Initial Vital Signs: Vital Signs Temperature 98.9 F 02/08/24 20:53 Pulse Rate 121 H 02/08/24 20:53 Respiratory Rate 22 02/08/24 20:53 Blood Pressure 125/87 02/08/24 20:53 Pulse Oximetry 90 L 02/08/24 20:53 Oxygen Delivery Method Room Air 02/08/24 20:53 Const: Awake, alert, appears chronically unwell, older than stated age Eye: Right eye normal, left eye with minimal crusting discharge in the corner, no conjunctival injection, cornea clear Cardiac: Tachycardia, regular rhythm RESP: Pursed lip breathing, speaking in complete sentences, restricted air movement upper and lower lung sexton Skin: Warm, Dry, intact, no rashes Neuro: AO x3, CN II-XII grossly intact, moves all extremities Course Orders Ordered: ED Orders 02/08/24 21:10 Complete Blood Count AUTO DIFF Stat Comprehensive Metabolic Panel Stat Lactate (Lactic Acid) Stat NT-proBNP (BNP-Adult 18+) Stat Prothrombin Time INR Stat Troponin I Stat Discontinued Medications Albuterol/Ipratropium (Albuterol/Ipratropium 3 Ml Ampul) 9 ml INH NOW ONE Stop: 02/08/24 22:26 Last Admin: 02/08/24 22:48 Dose: 9 ml Documented By: FAYE Methylprednisolone (Methylprednisolone 125 Mg/2 Ml Vial) 125 mg IV NOW ONE Stop: 02/08/24 22:26 Last Admin: 02/08/24 22:48 Dose: 125 mg Documented By: FAYE Vital Signs Vital signs: Vital Signs - 8 hr 07/13/24 23:49 Pulse Rate 116 H Respiratory Rate 16 Blood Pressure 146/105 H Pulse Oximetry 94 Oxygen Delivery Method Nasal Cannula Oxygen Flow Rate 2 MDM - Recheck/Abnormal Lab/Rx Lab Data 02/08/24 21:10 02/08/24 21:10 Labs: Lab Results 02/08/24 02/08/24 Range/Units 21:10 23:10 WBC 8.4 (4.5-11.0) X10^3/uL RBC 5.44 (4.5-5.9) X10^6/uL Hgb 16.8 (13.5-17.5) g/dL Hct 52.8 (41-53) % MCV 97.2 (80-100) fL MCH 30.9 (26-34) PG MCHC 31.8 (30-36) % RDW 14.9 H (11.6-14.8) % Plt Count 168 (150-400) X10^3/uL Neut % (Auto) 28.3 L (50-75) % Lymph % (Auto) 49.7 H (25-40) % [place] % (Auto) 9.1 (3-14) % Eos % (Auto) 12.5 H (2-4) % Baso % (Auto) 0.4 (0-2) % Neut # (Auto) 2400 (4213-2974) /uL Lymph # (Auto) 4200 (5216-1286) /uL [place] # (Auto) 800 (0-900) /uL Eos # (Auto) 1100 H (0-450) /uL Baso # (Auto) 0 (0-100) /uL PT 11.3 (9.4-12.5) SECONDS INR 1.0 (0.9-1.3) Sodium 139 (137-145) mmol/L Potassium 4.2 (3.4-5.1) mmol/L Chloride 99 (98-107) mmol/L Carbon Dioxide 36 H (22-32) mmol/L BUN 26 H (9-20) mg/dL Creatinine 0.92 (0.66-1.25) mg/dL Estimated GFR > 60 (>60) mL/min BUN/Creatinine Ratio 28.3 H (6-22) Glucose 108 (80-110) mg/dL Lactate 2.1 1.3 (0.7-2.1) mmol/L Calcium 9.6 (8.4-10.2) mg/dL Total Bilirubin 0.9 (0.2-1.3) mg/dL AST 90 H (17-59) IU/L ALT 56 H (<50) IU/L Alkaline Phosphatase 70 (38-126) U/L Troponin I 0.068 H (0.01-0.034) ng/mL NT-Pro-B Natriuret Pep 1320 H (<125) pg/mL Total Protein 7.2 (6.3-8.2) g/dL Albumin 4.2 (3.5-5.0) g/dL Globulin 3.0 (1.7-4.1) g/dL Albumin/Globulin Ratio 1.4 (1.0-2.8) Imaging Data Chest x-ray: Radiologist's Impression: PROCEDURE: XR CHEST 1V INDICATIONS: Shortness of breath TECHNIQUE: One view of the chest was acquired. COMPARISON: [facility], CR, XR CHEST 1 VIEW, 12/01/2023, 16:02. [facility], CR, XR CHEST 1 VIEW, 12/07/2023, 20:12. FINDINGS: Surgical changes and devices: Cervical fusion hardware Lungs and pleura: No new dense consolidation or pleural effusion. Low lung volumes. Mediastinum: Fullness of the abby, similar to recent radiographs. Normal heart size Bones and chest wall: Degenerative changes. Unchanged widening of the right AC interval IMPRESSION: No acute radiographic changes. No dense airspace disease or pleural effusion on this single view study. Moderate fullness of the abby, similar to recent prior radiographs, not well evaluated on this study. Dictated by: Natanael Cornell M.D. on 02/08/2024 at 21:27 Approved by: Natanael Cornell M.D. on 02/08/2024 at 21:29 ECG Data Interpretation: Sinus tachycardia at 117 beats per minute, normal OH, no ST T wave changes, no STEMI MDM Narrative Medical decision making narrative: Patient presenting to see if he can get a portable oxygen machine so that he may go to rehab for his polysubstance use. Initial triage photos show 90% O2 on room air, subsequently placed on 2 L nasal cannula. Nebulizers, steroids ordered Laboratory work shows WBC count 8.4, hemoglobin 16.8, platelet count 168, sodium 139, potassium 4.2, creatinine 0.92, troponin 0.068, BNP 1320. EKG is normal sinus rhythm, patient denying chest pain, troponin is likely elevated to chronic hypoxia and polysubstance use. Chest x-ray shows no acute findings. Patient reported feeling somewhat better after receiving nebulizers and steroids. Repeat room oxygen saturation at rest 88%. I recommended admission to the hospital for further treatment of COPD as well as sitting up oxygen resources for the patient, as we are unable to arrange for home oxygen at night on the weekends. Patient declined stating that he did not want to stay in the hospital and felt fine. He states that this is a chronic issue for him and he has always been able to manage and ?bounce back?, so he does not want to stay overnight. He did request a refill of his inhaler as well as steroids and an antibiotic for his eye. Prednisone, Advair, azithromycin, and erythromycin ophthalmic ointment sent to pharmacy of choice. Patient is strongly encouraged to follow up with his primary care doctor for home oxygen. Discharge Plan Departure Patient Disposition: Left Against Medical Advice Clinical Impression: Acute exacerbation of chronic obstructive pulmonary disease, Left against medical advice Instructions: DI for Chronic Obstructive Pulmonary Disease Activity Restrictions/Additional Instructions: Please make sure that you follow up with the primary care doctor as it was extremely important that you get home oxygen. Your oxygen levels are low here but you declined to stay in the hospital. Prescriptions: New prednisone 20 mg tablet 40 mg PO DAILY Qty: 10 0RF azithromycin 250 mg tablet See Rx Instructions .ROUTE .COMPLEX Qty: 6 0RF Rx Instructions: For 250 mg dose pack: take 500 mg today (day 1), then 250 mg for 4 days (days 2-5) erythromycin 5 mg/gram (0.5 %) ointment 0.5 inch EYE-LEFT QID Qty: 3.5 0RF fluticasone propion-salmeterol [Advair Diskus] 500-50 mcg/dose blister with device 1 inh inhalation Q12H Qty: 60 0RF No Action IBUPROFEN (Motrin / Advil) 600 mg PO Qty: 0 Naproxen Sodium (Naprosyn) 0 PO *UK DOSE/FREQUENCY Qty: 0 meloxicam [Mobic] 7.5 MG tablet 7.5 mg PO BIDCC PRNQty: 20 0RF diazepam [Valium] 10 MG tablet 10 mg PO TIDP PRNQty: 10 0RF amoxicillin-pot clavulanate 875-125 mg tablet 1 tab PO Q12H Qty: 20 0RF Referrals: Iliana Raya ARNP [Primary Care Provider] - Stand Alone Forms: Patient Portal/API, Against Medical Advice
[2024-02-08] MEDS: methylPREDNISolone 125 MG/2 ML VIAL IV (22:48)
[2024-02-08] MEDS: ALBUTEROL/IPRATROPIUM 3 ML AMPUL 9 ML INH (22:48)
[2024-02-08 22:49] LABS: Reflexed Lactate in 2 Hours Y
[2024-02-08 23:26] LABS: Lactate 2HR (Lactic Acid Rflx) 1.3 mmol/L (0.7-2.1)
[2024-02-08 23:49] VITALS: BP 146/105; PULSE 116; RESP 16; O2SAT 94
== END 2024-02-08 23:51 | disposition left against medical advice (07) ==
PROVIDERS: Emergency Provider Emergency Medicine; PCP Nurse Practitioner Family
DX: J44.1 Chronic obstructive pulmonary disease with (acute) exacerbation (principal)
CPT/HCPCS: 36415; 71045; 80053; 83605; 83880; 84484; 85025; 85610; 93005; 96374; 99284; J2919

== ENCOUNTER 2024-02-26 08:18 | Observation (INO) | payer OTHER, MEDICAID, SELFPAY ==
[2024-02-26] VITALS (9 sets, daily range): BP systolic 132–167; BP diastolic 96–124; PULSE 90–99; RESP 19–35; TEMP 36.1–36.6; O2SAT 82–99; BMI 20.7
--- NOTE | 2024-02-26 08:24 | DI.RAD.S_ITS ---
PROCEDURE: XR CHEST 1V INDICATIONS: Shortness of breath TECHNIQUE: One view of the chest was acquired. COMPARISON: [facility], CR, XR CHEST 1V, 02/08/2024, 21:01. FINDINGS: Surgical changes and devices: None. Lungs and pleura: Lungs are clear. No pleural effusions or pneumothorax. Mediastinum: Mediastinal contours appear normal. Heart size is normal. Bones and chest wall: No suspicious bony lesions. Overlying soft tissues appear unremarkable. IMPRESSION: No acute cardiopulmonary abnormality is seen. Dictated by: Saranya Hernandez M.D. on 02/26/2024 at 9:33 Approved by: Saranya Hernandez M.D. on 02/26/2024 at 9:33
--- NOTE | 2024-02-26 08:38 | ED.SOB ---
HPI - SOB/Dyspnea General Chief Complaint: Shortness of Breath/Dyspnea Stated Complaint: COPD Time Seen by Provider: 02/26/24 08:31 History of Present Illness HPI Narrative: Patient is seen here 2 weeks ago for COPD exacerbation left against medical advice for admission. Patient has long history of polysubstance abuse and smoking cigarettes and COPD. Has been taking daily breathing treatments without success. His home oxygen oximetry read in the low 70s. Patient has had dry cough. He has had difficulty getting to detox for polysubstance due to his COPD and medical management. He does agree for admission to the hospital today. Patient feeling much better with 4 L nasal cannula. Speaking full sentences but but does have diminished lung sounds. Denies any chest pain or limb swelling. Legs are exposed. Related Data Home Medications Medication Instructions Recorded Confirmed IBUPROFEN (Motrin / Advil) 600 mg PO PRN PRN Pain (Scale 01/29/02/26/24 Score 1-3) ##0 albuterol sulfate 90 mcg/actuation 2 puff inhalation Q4H PRN wheezing 02/26/24 02/26/24 aerosol inhaler allopurinol 100 mg tablet 100 mg PO DAILY 02/26/24 02/26/24 clobetasol 0.05 % scalp solution 1 applic topical DAILY 02/26/24 02/26/24 ketoconazole 2 % shampoo 1 applic topical DAILY 02/26/24 02/26/24 ketoconazole 2 % topical cream 1 applic topical DAILY PRN itch 02/26/24 02/26/24 lisinopril 20 mg tablet 20 mg PO DAILY 02/26/24 02/26/24 metoprolol succinate 50 mg 50 mg PO DAILY 02/26/24 02/26/24 tablet,extended release 24 hr spironolactone 25 mg tablet 25 mg PO DAILY 02/26/24 02/26/24 tiotropium bromide 18 mcg capsule 1 cap inhalation DAILY 02/26/24 02/26/24 with inhalation device Previous Rx's Medication Instructions Recorded fluticasone 500 mcg-salmeterol 50 1 inh inhalation Q12H #60 ea 02/08/24 mcg/dose blistr powdr for inhalation (Advair Diskus) prednisone 20 mg tablet 40 mg (2 x 20 mg) PO DAILY #10 tabs 02/08/24 doxycycline hyclate 100 mg capsule 100 mg PO BID #10 caps 02/26/24 prednisone 20 mg tablet 40 mg (2 x 20 mg) PO DAILY #20 tabs 02/26/24 Allergies Allergy/AdvReac Type Severity Reaction Status Date / Time acetaminophen [From ROXICET] AdvReac Mild NAUSEA Verified 10/01/18 19:03 oxycodone [From ROXICET] AdvReac Mild NAUSEA Verified 10/01/18 19:03 Review of Systems Review of Systems Narrative: GENERAL: negative chills, fatigue, malaise, fever, sweats. HEENT: negative sinus pain, ear pain, sore throat RESPIRATORY: Positive dyspnea, cough CARDIOVASCULAR: negative chest pain, palpitations GASTROINTESTINAL: negative nausea, vomiting, abdominal pain : negative dysuria, frequency, hematuria MUSCULOSKELETAL: negative muscle or bony pain SKIN: negative rash, skin lesions NEUROLOGIC: negative weakness, numbness ROS Unobtainable: All systems reviewed & are unremarkable except as noted in HPI and below Patient History Medical History History of osteoarthritis History of hepatitis C Surgical History Status post total replacement of hip Status post cervical spinal fusion Social History household members: other Smoking Status: Current every day smoker alcohol intake: current Smoking Status: Current every day smoker tobacco type: cigarettes alcohol intake frequency: 0-2 drinks per day Alcohol type: beer and hard liquor Substance Use Type: marijuana, crack/cocaine, amphetamines and methamphetamine Exam Narrative Exam Narrative: GENERAL: in no distress, not toxic not dyspneic HEAD: Normocephalic. EYES: Pupils equal round ENT: Mucous membranes moist. NECK: Trachea midline. CARDIOVASCULAR: Regular rate and rhythm RESPIRATORY: Patient on 4 L nasal cannula, this is new for him. Speaking full sentences. Diminished bilateral lung sounds. Diffuse wheezing. No respiratory distress GASTROINTESTINAL: Abdomen soft, non-tender EXTREMITIES: No gross deformities. No leg or ankle edema BACK: No flank tenderness. NEURO: AOx4. SKIN: Warm and dry PSYCH: Not anxious, is cooperative Initial Vital Signs Initial Vital Signs: Vital Signs Temperature 97.9 F 02/26/24 08:35 Pulse Rate 99 H 02/26/24 08:35 Respiratory Rate 30 H 02/26/24 08:35 Blood Pressure 167/124 H 02/26/24 08:35 Pulse Oximetry 85 L 02/26/24 08:35 Oxygen Delivery Method Room Air 02/26/24 08:35 Course Orders Ordered: Discontinued Medications Acetaminophen (Acetaminophen 325 Mg Tablet) 650 mg PO Q6H PRN PRN Reason: Fever/Mild Pain (1-3) Al Hydrox/Mg Hydrox/Simethicone (Mag Hydrox/Alum/Simeth 30 Ml Udc) 30 ml PO Q6HR PRN PRN Reason: Dyspepsia Albuterol (Albuterol 2.5 Mg/3 Ml Neb (Adult)) 2.5 mg INH [id number] PRN PRN Reason: Shortness Of Breath Albuterol/Ipratropium (Albuterol/Ipratropium 3 Ml Ampul) 3 ml INH NOW ONE Stop: 02/26/24 08:38 Last Admin: 02/26/24 08:51 Dose: 3 ml Documented By: MADISON Albuterol/Ipratropium (Albuterol/Ipratropium 3 Ml Ampul) 3 ml INH NOW ONE Stop: 02/26/24 09:03 Last Admin: 02/26/24 09:14 Dose: 3 ml Documented By: MADISON Albuterol/Ipratropium (Albuterol/Ipratropium 3 Ml Ampul) 3 ml INH [id number] [facility] Last Admin: 02/26/24 14:41 Dose: 3 ml Documented By: MADISON Budesonide (Budesonide 0.5 Mg/2 Ml Neb) 0.5 mg INH RTBID MAURICIO Heparin Sodium (Porcine) (Heparin 5,000 Unit/Ml Vial) 5,000 unit SUBCUT BID [facility] Azithromycin 500 mg/ Dextrose 250 mls @ 250 mls/hr IV Q24H MAURICIO Ipratropium [place] (Ipratropium 0.5 Mg/2.5 Ml Neb) 0.5 mg INH RTQ4HR [facility] Methylprednisolone (Methylprednisolone 125 Mg/2 Ml Vial) 125 mg IV NOW ONE Stop: 02/26/24 08:38 Last Admin: 02/26/24 09:02 Dose: 125 mg Documented By: KEL Methylprednisolone (Methylprednisolone 125 Mg/2 Ml Vial) 60 mg IV Q6HR [facility] Last Admin: 02/26/24 18:35 Dose: 60 mg Documented By: Admin: 02/26/24 12:30 Dose: 60 mg Documented By: EDMUND Naloxone HCl (Naloxone 0.4 Mg/Ml Vial) 0.2 mg IV Q2MIN PRN PRN Reason: Opiate Reversal Ondansetron HCl (Ondansetron 4 Mg/2 Ml Inj) 4 mg IV Q8HR PRN PRN Reason: Nausea And Vomiting Oxycodone HCl (Oxycodone Ir 5 Mg Tablet) 5 mg PO Q3H PRN PRN Reason: Pain, Moderate (4-6) Sodium Chloride (Sodium Chloride 0.9% Flush) 10 ml IV PRN PRN PRN Reason: Flush Sodium Chloride (Sodium Chloride 0.9% Flush) 10 ml IV BID MAURICIO Vital Signs Vital signs: Vital Signs - 8 hr 02/26/24 08:35 02/26/24 08:38 02/26/24 09:03 Temperature 97.9 F Pulse Rate 99 H 90 Respiratory Rate 30 H 32 H Blood Pressure 167/124 H Pulse Oximetry 85 L 86 L 92 Oxygen Delivery Method Room Air Nasal Cannula Nasal Cannula Oxygen Flow Rate 4 2 MDM - SOB/Dyspnea Lab Data 02/26/24 08:32 02/26/24 08:32 Labs: Lab Results 02/26/24 02/26/24 Range/Units 08:32 08:49 WBC 11.4 H (4.5-11.0) X10^3/uL RBC 5.27 (4.5-5.9) X10^6/uL Hgb 16.3 (13.5-17.5) g/dL Hct 51.1 (41-53) % MCV 97.0 (80-100) fL MCH 30.9 (26-34) PG MCHC 31.9 (30-36) % RDW 14.9 H (11.6-14.8) % Plt Count 159 (150-400) X10^3/uL Neut % (Auto) 30.7 L (50-75) % Lymph % (Auto) 56.9 H (25-40) % [place] % (Auto) 6.6 (3-14) % Eos % (Auto) 5.2 H (2-4) % Baso % (Auto) 0.6 (0-2) % Neut # (Auto) 3500 (3502-7731) /uL Lymph # (Auto) 6500 H (7896-7355) /uL [place] # (Auto) 800 (0-900) /uL Eos # (Auto) 600 H (0-450) /uL Baso # (Auto) 100 (0-100) /uL PT 11.1 (9.4-12.5) SECONDS INR 1.0 (0.9-1.3) Sodium 136 L (137-145) mmol/L Potassium 4.7 (3.4-5.1) mmol/L Chloride 99 (98-107) mmol/L Carbon Dioxide 31 (22-32) mmol/L BUN 26 H (9-20) mg/dL Creatinine 1.05 (0.66-1.25) mg/dL Estimated GFR > 60 (>60) mL/min BUN/Creatinine Ratio 24.8 H (6-22) Glucose 102 (80-110) mg/dL Lactate 1.3 (0.7-2.1) mmol/L Calcium 9.1 (8.4-10.2) mg/dL Total Bilirubin 1.1 (0.2-1.3) mg/dL AST 98 H (17-59) IU/L ALT 79 H (<50) IU/L Alkaline Phosphatase 78 (38-126) U/L Troponin I 0.058 H (0.01-0.034) ng/mL NT-Pro-B Natriuret Pep 6120 H (<125) pg/mL Total Protein 7.1 (6.3-8.2) g/dL Albumin 4.3 (3.5-5.0) g/dL Globulin 2.8 (1.7-4.1) g/dL Albumin/Globulin Ratio 1.5 (1.0-2.8) Chlamy pneumoniae PCR Not detected (Not Detect) Adenovirus (PCR) Not detected (Not Detect) B.parapertussis DNA PCR Not detected (Not Detecte) Coronavirus OC43 (PCR) Not detected (Not Detect) Coronavirus HKU1 (PCR) Not detected (Not Detect) Coronavirus 229E (PCR) Not detected (Not Detect) SARS-CoV-2 (PCR) Not detected (Not Detecte) Coronavirus NL63 (PCR) Not detected (Not Detect) Human Metapneumovir PCR Not detected (Not Detect) Influenza Type A (PCR) Not detected (Not Detect) Influenza Type B (PCR) Not detected (Not Detect) M. pneumoniae (PCR) Not detected (Not Detect) Parainfluenza 1 (PCR) Not detected (Not Detect) Parainfluenza 2 (PCR) Not detected (Not Detect) Parainfluenza 3 (PCR) Not detected (Not Detect) Parainfluenza 4 (PCR) Not detected (Not Detect) RSV (PCR) Not detected (Not Detect) Entero/Rhino (PCR) Not detected (Not Detect) Imaging Data Chest x-ray: Radiologist's Impression: [address] [address] XRay Report Signed Patient: Felipe Miller MR#: [id number] : 1960 Acct:[id number] Age/Sex: 63 / M Date of Service: 02/26/24 Loc: ED Accession Number: [id number] Procedure: XR chest 1V Ordering Provider: Olaf Olivares MD PROCEDURE: XR CHEST 1V INDICATIONS: Shortness of breath TECHNIQUE: One view of the chest was acquired. COMPARISON: [facility], , XR CHEST 1V, 02/08/2024, 21:01. FINDINGS: Surgical changes and devices: None. Lungs and pleura: Lungs are clear. No pleural effusions or pneumothorax. Mediastinum: Mediastinal contours appear normal. Heart size is normal. Bones and chest wall: No suspicious bony lesions. Overlying soft tissues appear unremarkable. IMPRESSION: No acute cardiopulmonary abnormality is seen. Dictated by: Saranya Hernandez M.D. on 02/26/2024 at 9:33 Approved by: Saranya Hernandez M.D. on 02/26/2024 at 9:33 [facility] Narrative Medical decision making narrative: Patient is seen here 2 weeks ago for COPD exacerbation left against medical advice for admission. Patient has long history of polysubstance abuse and smoking cigarettes and COPD. Has been taking daily breathing treatments without success. His home oxygen oximetry read in the low 70s. Patient has had dry cough. He has had difficulty getting to detox for polysubstance due to his COPD and medical management. He does agree for admission to the hospital today. Patient feeling much better with 4 L nasal cannula. Speaking full sentences but but does have diminished lung sounds. Denies any chest pain or limb swelling. Legs are exposed. After history and exam DuoNeb Solu-Medrol EKG troponin CBC CMP chest x-ray social work consult/admit [facility] Medical records reviewed: Visit here for COPD 2 weeks ago Differential considered: Includes but not limited to COPD exacerbation pneumonia bronchitis viral syndrome, noncompliance, substance abuse Lab Test results independently reviewed as above. Pertinent findings: WBC 11.4 hemoglobin 16.3 INR 1.0 sodium 136 potassium 4.7 GFR greater than 60 AST 98 ALT 79 troponin 0.058 BNP 6120 Independently reviewed EKG normal sinus rhythm rate 91, no ST elevation or depression Imaging studies independently reviewed: Chest x-ray no acute finding Consultations: 9:[address] Walden, hospitalist, who will admit. At this time troponin he agrees is nonspecific and likely cardiac demand from his COPD. He has no chest pain. BNP is nonspecific as well. CHF does not clinically correlate as x-ray looks clear on chest, no rales. Treatments: DuoNeb Solu-Medrol Re-evaluations: 9:32 a.m. patient has had 2 breathing treatments. Feeling better. Decreased wheezing. He does understand and agree for admission. Discussion: Appropriate for admission for COPD exacerbation/hypoxic requiring supplemental oxygen. Patient feeling better after treatments. Diagnosis: COPD exacerbation Discharge Plan Departure Patient Disposition: Admitted as Observation Clinical Impression: Acute exacerbation of chronic obstructive pulmonary disease, Polysubstance abuse Admit Date/Time: 02/26/24 09:44 Admit Provider: Javid Walden
[2024-02-26 08:48] LABS: Add Manual Diff / Slide Review NO; Basophils Absolute Auto 100 /uL (0-100); Basophils Percent Auto 0.6 % (0-2); Eosinophils Absolute Auto 600 /uL (0-450); Eosinophils Percent Auto 5.2 % (2-4); Hematocrit 51.1 % (41-53); Hemoglobin 16.3 g/dL (13.5-17.5); Lymphocytes Absolute Auto 6500 /uL (1100-4500); Lymphocytes Percent Auto 56.9 % (25-40); Mean Corpuscular HGB Conc 31.9 % (30-36); Mean Corpuscular Hemoglobin 30.9 PG (26-34); Monocytes Absolute Auto 800 /uL (0-900); Monocytes Percent Auto 6.6 % (3-14); Neutrophils Absolute Auto 3500 /uL (1500-7000); Neutrophils Percent Auto 30.7 % (50-75); Platelet Count 159 X10^3/uL (150-400); Red Blood Cell Count 5.27 X10^6/uL (4.5-5.9); Red Cell Distribution Width 14.9 % (11.6-14.8); White Blood Cell Count 11.4 X10^3/uL (4.5-11.0)
[2024-02-26 08:50] LABS: Prothrombin Time 11.1 SECONDS (9.4-12.5)
[2024-02-26] MEDS: ALBUTEROL/IPRATROPIUM 3 ML AMPUL INH ×3 (08:51→14:41)
[2024-02-26 08:57] LABS: Alanine Aminotransferase 79 IU/L (<50); Albumin 4.3 g/dL (3.5-5.0); Albumin Globulin Ratio 1.5 (1.0-2.8); Alkaline Phosphatase 78 U/L (38-126); Aspartate Aminotransferase 98 IU/L (17-59); BUN Creatinine Ratio 24.8 (6-22); Bilirubin Total 1.1 mg/dL (0.2-1.3); Blood Urea Nitrogen 26 mg/dL (9-20); Calcium 9.1 mg/dL (8.4-10.2); Carbon Dioxide 31 mmol/L (22-32); Chloride 99 mmol/L (98-107); Estimated Glomerular Filt Rate > 60 mL/min (>60); Globulin 2.8 g/dL (1.7-4.1); Glucose 102 mg/dL (80-110); Potassium 4.7 mmol/L (3.4-5.1); Sodium 136 mmol/L (137-145); Total Protein 7.1 g/dL (6.3-8.2)
[2024-02-26 08:59] LABS: HEMOLYSIS 59 (0-50); Lactate (Lactic Acid) 1.3 mmol/L (0.7-2.1)
--- NOTE | 2024-02-26 09:00 | EKG_ITS ---
[address] [address] Test Date: 2024-02-26 Pat Name: Felipe Miller Department: [facility] Room: Gender: Male Him Coder: BILLY : 1960 Requested By: Order Number: [id number] Reading MD: Javid Walden Measurements Intervals [place] Rate: 91 P: 72 LA: 152 QRS: 186 QRSD: 98 T: 62 QT: 394 QTc: 484 Interpretive Statements Normal sinus rhythm with sinus arrhythmia Right superior axis deviation Minimal voltage criteria for LVH, may be normal variant ( [place] product ) Prolonged QT Electronically Signed On 02-26-2024 9:01:55 PDT by Javid Walden
[2024-02-26] MEDS: methylPREDNISolone 125 MG/2 ML VIAL IV (09:02)
[2024-02-26 09:09] LABS: NT-proBNP (BNP-Adult 18+) 6120 pg/mL (<125); Troponin I 0.058 ng/mL (0.01-0.034)
--- NOTE | 2024-02-26 09:10 | PC.NURSE ---
Pt states that he feels less dyspneic after neb tx. Pt RR 28 o2 sat 94% on 4L NC.
[2024-02-26 10:00] LABS: Fractionated Inspired Oxygen 28; HCO3 VBG 30 mmol/L (24-28); Oxygen Saturation VBG 79 % (70-75); PCO2 VBG 52.6 mmHg (45-50); PO2 VBG 46 mmHg (35-45); Total CO2 VBG 30 mmol/L (24-29); pH VBG 7.36 (7.33-7.43)
[2024-02-26 10:22] LABS: Ur Creatinine Normal (Normal); Ur Specific Gravity Normal (Normal); Urine Cocaine Positive (Negative); Urine THC Positive (Negative); Urine pH Normal (Normal)
--- NOTE | 2024-02-26 10:22 | PM.HP.1 ---
History of Present Illness History of Present Illness Date Patient Seen: 02/26/24 Time Patient Seen: 12:18 Date of Onset of Symptoms: 02/20/24 Chief complaint: COPD Narrative: From ED doctor: Patient is seen here 2 weeks ago for COPD exacerbation left against medical advice for admission. Patient has long history of polysubstance abuse and smoking cigarettes and COPD. Has been taking daily breathing treatments without success. His home oxygen oximetry read in the low 70s. Patient has had dry cough. He has had difficulty getting to detox for polysubstance due to his COPD and medical management. He does agree for admission to the hospital today. Patient feeling much better with 4 L nasal cannula. Speaking full sentences but but does have diminished lung sounds. Denies any chest pain or limb swelling. Legs are exposed. S: He has been progressively more short of breath for the past several days. He was home oximeter read in the 70s today. He has had rhinorrhea, and cough. He also notes a fair amount of mucus. No fevers, or chills. His chest x-ray in the ED was clear. He has been taking his medications at home. He continues to smoke about a pack of cigarettes a day although he was trying to stop. He also continues to use methamphetamine, and does smoke this as well. He did have home oxygen for a period of time but returned the tank because it was so large. He currently has no home oxygen but it sounds as though he was qualified for home O2 in the past and, or palpitations. No orthopnea, or leg edema. ED course: He was given oxygen, IV steroids, and DuoNebs in the emergency department. [facility] Medical History History of osteoarthritis History of hepatitis C Surgical History Status post total replacement of hip Status post cervical spinal fusion Social History household members: other Smoking Status: Current every day smoker alcohol intake: current Meds Home Medications and Allergies Home Medications Medication Instructions Recorded Confirmed Type IBUPROFEN (Motrin / Advil) 600 mg PO PRN PRN Pain (Scale 01/29/06 02/26/24 History Score 1-3) ##0 fluticasone 500 mcg-salmeterol 50 1 inh inhalation Q12H #60 ea 02/08/24 02/26/24 Rx mcg/dose blistr powdr for inhalation (Advair Diskus) prednisone 20 mg tablet 40 mg (2 x 20 mg) PO DAILY #10 tabs 02/08/24 02/26/24 Rx albuterol sulfate 90 mcg/actuation 2 puff inhalation Q4H PRN wheezing 02/26/24 02/26/24 History aerosol inhaler allopurinol 100 mg tablet 100 mg PO DAILY 02/26/24 02/26/24 History clobetasol 0.05 % scalp solution 1 applic topical DAILY 02/26/24 02/26/24 History ketoconazole 2 % shampoo 1 applic topical DAILY 02/26/24 02/26/24 History ketoconazole 2 % topical cream 1 applic topical DAILY PRN itch 02/26/24 02/26/24 History lisinopril 20 mg tablet 20 mg PO DAILY 02/26/24 02/26/24 History metoprolol succinate 50 mg 50 mg PO DAILY 02/26/24 02/26/24 History tablet,extended release 24 hr spironolactone 25 mg tablet 25 mg PO DAILY 02/26/24 02/26/24 History tiotropium bromide 18 mcg capsule 1 cap inhalation DAILY 02/26/24 02/26/24 History with inhalation device Allergies Allergy/AdvReac Type Severity Reaction Status Date / Time acetaminophen [From ROXICET] AdvReac Mild NAUSEA Verified 10/01/18 19:03 oxycodone [From ROXICET] AdvReac Mild NAUSEA Verified 10/01/18 19:03 Review of Systems Review of Systems Narrative: All else reviewed and otherwise unremarkable except as noted in the history and physical. Exam Vital Signs (past 8 hours): - 02/26/24 08:35 02/26/24 08:38 02/26/24 09:03 Temperature 97.9 F Pulse Rate 99 H 90 Respiratory Rate 30 H 32 H Blood Pressure 167/124 H Pulse Oximetry 85 L 86 L 92 Oxygen Delivery Method Room Air Nasal Cannula Nasal Cannula Oxygen Flow Rate 4 2 02/26/24 09:22 02/26/24 09:22 02/26/24 09:30 Temperature Pulse Rate 91 H 92 H Respiratory Rate 31 H 31 H Blood Pressure 167/116 H Pulse Oximetry 93 93 Oxygen Delivery Method Oxygen Flow Rate 02/26/24 09:30 02/26/24 10:00 02/26/24 10:00 Temperature Pulse Rate 93 H Respiratory Rate 35 H Blood Pressure 166/123 H 165/117 H Pulse Oximetry 92 Oxygen Delivery Method Nasal Cannula Oxygen Flow Rate 2 Oxygen Delivery Method Nasal Cannula Oxygen Flow Rate 2 Narrative Exam Narrative: NAD, alert and oriented, fluent speech, calm. Normocephalic skull, EOMI, anicteric sclera, symmetric pupils. Oropharynx unremarkable, no droop. Neck supple, midline trachea, no adenopathy. Lungs clear, normal rate and effort. He was on oxygen, 2 L. His lungs are all somewhat diminished globally. Minimal wheezing. Heart regular, no murmur gallop or rub. Abdomen is soft, non distended and non tender. Extremities are free of edema. Skin is free of rash or lesions. Joints are not swollen or deformed. Judgment appears to be normal. Objective ECG Impression: Normal sinus rhythm with sinus arrhythmia Right superior axis deviation Minimal voltage criteria for LVH, may be normal variant ( [place] product ) Prolonged QT Imaging Chest x-ray: My impression: No acute infiltrates noted by my read. The lungs are also not that hyperinflated. Labs 02/26/24 08:32 02/26/24 08:32 Labs: Laboratory Results - last 24 hr 02/26/24 02/26/24 08:32 09:48 WBC 11.4 H RBC 5.27 Hgb 16.3 Hct 51.1 MCV 97.0 MCH 30.9 MCHC 31.9 RDW 14.9 H Plt Count 159 Neut % (Auto) 30.7 L Lymph % (Auto) 56.9 H [place] % (Auto) 6.6 Eos % (Auto) 5.2 H Baso % (Auto) 0.6 Neut # (Auto) 3500 Lymph # (Auto) 6500 H [place] # (Auto) 800 Eos # (Auto) 600 H Baso # (Auto) 100 PT 11.1 INR 1.0 VBG pH 7.36 VBG pCO2 52.6 H VBG pO2 46 H VBG HCO3 30 H VBG Total CO2 30 H VBG O2 Saturation 79 H VBG Base Excess 3.0 FiO2 28 Sodium 136 L Potassium 4.7 Chloride 99 Carbon Dioxide 31 BUN 26 H Creatinine 1.05 Estimated GFR > 60 BUN/Creatinine Ratio 24.8 H Glucose 102 Lactate 1.3 Calcium 9.1 Total Bilirubin 1.1 AST 98 H ALT 79 H Alkaline Phosphatase 78 Troponin I 0.058 H NT-Pro-B Natriuret Pep 6120 H Total Protein 7.1 Albumin 4.3 Globulin 2.8 Albumin/Globulin Ratio 1.5 Assessment & Plan Assessment & Plan narrative: 1. COPD exacerbation, present on admission and active. 2. Acute hypoxic respiratory failure, present on admission and active. 3. Methamphetamine use, present on admission and active. Plan: -IV antibiotics, azithromycin daily for 3 days. -respiratory PCR was negative. -IV steroids, Solu-Medrol 60 mg q.6 hours -DuoNebs scheduled and as needed. Observation status, expect a 1 night need for hospital services. DENITA: 02/26. Full resuscitation, no proxy decision maker. Time-Based Coding :: 30 min spent with patient and on the chart (including review of chart, obtaining history, exam, reviewing outside data, placing orders, documenting exam and treatment plan, and counseling patient) on 02/25. Quality MIPS - Admit I confirm the patient?s Advance Care Plan is present, Code status is documented, Surrogate decision maker is in patient?s record [If Yes, STOP here]: Yes MIPS - Meds 'Current medications' to include all prescriptions, [id number] products, herbals, cannabis/cannabidiol products, and vitamin/mineral/dietary (nutritional) supplements. I have utilized all available resources to obtain, update, or review the patient?s current medications. [If Yes, STOP here]: Yes
[2024-02-26 10:23] LABS: Urine Amphetamines Positive (Negative); Urine Barbiturates Negative (Negative); Urine Benzodiazepines Negative (Negative); Urine MDMA Negative (Negative); Urine Methadone Negative (Negative); Urine Methamphetamines Negative (Negative); Urine Opiates Negative (Negative); Urine Oxycodone Negative (Negative); Urine Phencyclidine Negative (Negative); Urine Tricyclic Antidepressant Negative (Negative)
[2024-02-26 10:40] LABS: Adenovirus Not Detected (Not Detect); B. parapertussis Not Detected (Not Detecte); Bordetella pertussis Not Detected (Not Detect); Chlamydophila pneumoniae Not Detected (Not Detect); Coronavirus 229E Not Detected (Not Detect); Coronavirus HKU1 Not Detected (Not Detect); Coronavirus NL 63 Not Detected (Not Detect); Coronavirus OC43 Not Detected (Not Detect); Human Metapneumovirus Not Detected (Not Detect); Human Rhinovirus/Enterovirus Not Detected (Not Detect); Influenza A Not Detected (Not Detect); Influenza B Not Detected (Not Detect); Mycoplasma pneumoniae Not Detected (Not Detect); Parainfluenza Virus 1 Not Detected (Not Detect); Parainfluenza Virus 2 Not Detected (Not Detect); Parainfluenza Virus 3 Not Detected (Not Detect); Parainfluenza Virus 4 Not Detected (Not Detect); Respiratory Syncytial Virus Not Detected (Not Detect); SARS- CoV-2 Not Detected (Not Detecte)
[2024-02-26 11:05] LABS: Troponin I 0.055 ng/mL (0.01-0.034)
[2024-02-26] MEDS: methylPREDNISolone 125 MG/2 ML VIAL 60 MG IV ×2 (12:30→18:35)
--- NOTE | 2024-02-26 15:16 | RT ---
Attempting to administer afternoon Tx, Pt sitting over by window in room without 2LNC, gave Pt their pulse-ox and it read 80%, this RT consulted the Pt and advised of the complications of low SpO2 and they stated I need to maintain 90% to get out of here Pt's Tx administered, Pt agreed to wear the 2LNC. SpO2 increased to 90%, I.S. education and performance goals given to Pt, their effort was moderate and could use encouragement.
--- NOTE | 2024-02-26 18:42 | P.DS_ITS ---
History of Present Illness History of Present Illness Chief complaint: COPD Narrative: From ED doctor: Patient is seen here 2 weeks ago for COPD exacerbation left against medical advice for admission. Patient has long history of polysubstance abuse and smoking cigarettes and COPD. Has been taking daily breathing treatments without success. His home oxygen oximetry read in the low 70s. Patient has had dry cough. He has had difficulty getting to detox for polysubstance due to his COPD and medical management. He does agree for admission to the hospital today. Patient feeling much better with 4 L nasal cannula. Speaking full sentences but but does have diminished lung sounds. Denies any chest pain or limb swelling. Legs are exposed. S: He has been progressively more short of breath for the past several days. He was home oximeter read in the 70s today. He has had rhinorrhea, and cough. He also notes a fair amount of mucus. No fevers, or chills. His chest x-ray in the ED was clear. He has been taking his medications at home. He continues to smoke about a pack of cigarettes a day although he was trying to stop. He also continues to use methamphetamine, and does smoke this as well. He did have home oxygen for a period of time but returned the tank because it was so large. He currently has no home oxygen but it sounds as though he was qualified for home O2 in the past and, or palpitations. No orthopnea, or leg edema. ED course: He was given oxygen, IV steroids, and DuoNebs in the emergency department. Discharge Providers Provider Date of admission: 02/26/24 09:44 Discharge Date: 02/26/24 Primary care physician: CORA Lofton Consults: 02/26/24 08:45 Consult to [place] - Educational Consultant Stat Comment: Educational Consultant Consult needed for:: Substance abuse Comment: 02/26/24 10:20 Consult to Cardio/Pulmonary Rehabilitation Routine Comment: Physician Instructions: Evaluate and treat 02/26/24 11:05 Consult to Dietitian, Adult Routine Comment: Reason For Exam: Weight loss Consult to [place] - Educational Consultant Routine Comment: Educational Consultant Consult needed for:: Substance abuse Unemployed Discharge provider: Javid Walden MD Summary Hospital Course Discharge Diagnosis: 1. COPD exacerbation, present on admission and active. 2. Acute hypoxic respiratory failure, present on admission and active. 3. Methamphetamine use, present on admission and active. 4. Patient requested discharge on the same afternoon he was admitted and was felt medically stable to do so. Hospital Course: He was admitted for COPD exacerbation. Upon arrival to the floor he was not hypoxic and was in no respiratory distress. He was treated with steroids and DuoNebs and then requested discharge several hours after his admission. He was on room air and in no distress. He was felt to be medically stable for discharge. Status at Discharge Cognitive/behavioral status at discharge: oriented Functional status at discharge: independent ambulation Overall status at discharge: patient is back to baseline Time Spent with Patient Time spent: Less than 30 minutes Exam Vital Signs (past 8 hours): - 02/26/24 11:53 02/26/24 14:46 02/26/24 15:00 Temperature 97.3 F L Pulse Rate 93 H Respiratory Rate 19 Blood Pressure 132/96 H Pulse Oximetry 82 L 93 Oxygen Delivery Method Nasal Cannula Room Air Oxygen Delivery Method Room Air Oxygen Flow Rate 2 Narrative Exam Narrative: NAD, alert and oriented. Fluent speech. Lungs are clear, normal rate and effort. Heart is regular, no murmur gallop or rub. Abdomen is soft, non distended. Extremities are free of edema. Objective Imaging Chest x-ray: My impression: No acute infiltrates noted by my read. The lungs are also not that hyperinflated. Radiologist's impression: Clear. Labs 02/26/24 08:32 02/26/24 08:32 Labs: Laboratory Results - last 24 hr 02/26/24 02/26/24 02/26/24 08:32 08:49 09:48 WBC 11.4 H RBC 5.27 Hgb 16.3 Hct 51.1 MCV 97.0 MCH 30.9 MCHC 31.9 RDW 14.9 H Plt Count 159 Neut % (Auto) 30.7 L Lymph % (Auto) 56.9 H [place] % (Auto) 6.6 Eos % (Auto) 5.2 H Baso % (Auto) 0.6 Neut # (Auto) 3500 Lymph # (Auto) 6500 H [place] # (Auto) 800 Eos # (Auto) 600 H Baso # (Auto) 100 PT 11.1 INR 1.0 VBG pH 7.36 VBG pCO2 52.6 H VBG pO2 46 H VBG HCO3 30 H VBG Total CO2 30 H VBG O2 Saturation 79 H VBG Base Excess 3.0 FiO2 28 Sodium 136 L Potassium 4.7 Chloride 99 Carbon Dioxide 31 BUN 26 H Creatinine 1.05 Estimated GFR > 60 BUN/Creatinine Ratio 24.8 H Glucose 102 Lactate 1.3 Calcium 9.1 Total Bilirubin 1.1 AST 98 H ALT 79 H Alkaline Phosphatase 78 Troponin I 0.058 H NT-Pro-B Natriuret Pep 6120 H Total Protein 7.1 Albumin 4.3 Globulin 2.8 Albumin/Globulin Ratio 1.5 U Opiates 300ng/mL cut Ur Oxycodone Screen Urine Methadone Screen Ur Barbiturates Screen U Tricyclic Antidepress Ur Phencyclidine Scrn Ur Amphetamines Screen U Methamphetamines Scrn Ur MDMA Scrn (Ecstasy) U Benzodiazepines Scrn Urine Cocaine Screen U Marijuana (THC) Screen Urine pH Urine Specific [place] Ur Creatinine Chlamy pneumoniae PCR Not detected Adenovirus (PCR) Not detected B.parapertussis DNA PCR Not detected Coronavirus OC43 (PCR) Not detected Coronavirus HKU1 (PCR) Not detected Coronavirus 229E (PCR) Not detected SARS-CoV-2 (PCR) Not detected Coronavirus NL63 (PCR) Not detected Human Metapneumovir PCR Not detected Influenza Type A (PCR) Not detected Influenza Type B (PCR) Not detected M. pneumoniae (PCR) Not detected Parainfluenza 1 (PCR) Not detected Parainfluenza 2 (PCR) Not detected Parainfluenza 3 (PCR) Not detected Parainfluenza 4 (PCR) Not detected RSV (PCR) Not detected Entero/Rhino (PCR) Not detected 02/26/24 02/26/24 09:58 10:30 WBC RBC Hgb Hct MCV MCH MCHC RDW Plt Count Neut % (Auto) Lymph % (Auto) [place] % (Auto) Eos % (Auto) Baso % (Auto) Neut # (Auto) Lymph # (Auto) [place] # (Auto) Eos # (Auto) Baso # (Auto) PT INR VBG pH VBG pCO2 VBG pO2 VBG HCO3 VBG Total CO2 VBG O2 Saturation VBG Base Excess FiO2 Sodium Potassium Chloride Carbon Dioxide BUN Creatinine Estimated GFR BUN/Creatinine Ratio Glucose Lactate Calcium Total Bilirubin AST ALT Alkaline Phosphatase Troponin I 0.055 H NT-Pro-B Natriuret Pep Total Protein Albumin Globulin Albumin/Globulin Ratio U Opiates 300ng/mL cut Negative Ur Oxycodone Screen Negative Urine Methadone Screen Negative Ur Barbiturates Screen Negative U Tricyclic Antidepress Negative Ur Phencyclidine Scrn Negative Ur Amphetamines Screen Positive H U Methamphetamines Scrn Negative Ur MDMA Scrn (Ecstasy) Negative U Benzodiazepines Scrn Negative Urine Cocaine Screen Positive H U Marijuana (THC) Screen Positive H Urine pH Normal Urine Specific [place] Normal Ur Creatinine Normal Chlamy pneumoniae PCR Adenovirus (PCR) B.parapertussis DNA PCR Coronavirus OC43 (PCR) Coronavirus HKU1 (PCR) Coronavirus 229E (PCR) SARS-CoV-2 (PCR) Coronavirus NL63 (PCR) Human Metapneumovir PCR Influenza Type A (PCR) Influenza Type B (PCR) M. pneumoniae (PCR) Parainfluenza 1 (PCR) Parainfluenza 2 (PCR) Parainfluenza 3 (PCR) Parainfluenza 4 (PCR) RSV (PCR) Entero/Rhino (PCR) [facility] Medical History History of osteoarthritis History of hepatitis C Surgical History Status post total replacement of hip Status post cervical spinal fusion Social History household members: other Smoking Status: Current every day smoker alcohol intake: current Discharge Assessment & Plan Assessment and Plan Assessment: 1. COPD exacerbation, present on admission and active. 2. Acute hypoxic respiratory failure, present on admission and active. 3. Methamphetamine use, present on admission and active. 4. Patient requested discharge on the same afternoon he was admitted and was felt medically stable to do so. 5. Chronic CO2 retainer as evidenced by admission blood gas with a compensated hypercarbia. Present on admission and active. Plan of Treatment: Discharge home with prednisone 40 daily for 5 days, as well as continued doxycycline for 4 additional days. He was advised to quit smoking. Discharge Plan Discharge Plan Patient Disposition: Home Provider Discharge Comment: Patient requested discharge about 5 hours after being admitted. He looks to be medically stable to be discharged with oral prednisone and close follow up. Discharge orders & Medications Prescriptions: New prednisone 20 mg tablet 40 mg PO DAILY Qty: 20 0RF doxycycline hyclate 100 mg capsule 100 mg PO BID Qty: 10 0RF Continued IBUPROFEN (Motrin / Advil) 600 mg PO PRN PRN (Reason: Pain (Scale Score 1-3)) Qty: 0 prednisone 20 mg tablet 40 mg PO DAILY Qty: 10 0RF fluticasone propion-salmeterol [Advair Diskus] 500-50 mcg/dose blister with device 1 inh inhalation Q12H Qty: 60 0RF ketoconazole 2 % shampoo 1 applic topical DAILY metoprolol succinate 50 mg tablet extended release 24 hr 50 mg PO DAILY lisinopril 20 mg tablet 20 mg PO DAILY allopurinol 100 mg tablet 100 mg PO DAILY spironolactone 25 mg tablet 25 mg PO DAILY ketoconazole 2 % cream 1 applic topical DAILY PRN (Reason: itch) albuterol sulfate 90 mcg/actuation HFA aerosol inhaler 2 puff inhalation Q4H PRN (Reason: wheezing) clobetasol 0.05 % solution 1 applic topical DAILY tiotropium bromide 18 mcg capsule, w/inhalation device 1 cap inhalation DAILY Follow up/Referrals: Iliana Raya ARNP [Primary Care Provider] - Discharge Health Status Multidrug resistant organism: No MDRO Diet/Activity/Treatments Diet: Low-fat Visit Report/Discharge Packet Instructions: DI for Chronic Obstructive Pulmonary Disease Stand Alone Forms: Patient Portal/API, Stroke Signs & Symptoms Discharge Data Primary Care Provider: Iliana Raya Attending Provider: Javid Walden Admit Date/Time: 02/26/24 09:44 Quality VTE Deep Vein Thrombosis/Pulmonary Embolism Present on Admission: No
--- NOTE | 2024-02-26 19:02 | PC.NURSE ---
Pt requesting discharge, stating he feels better. Provider at bedside, /discharge teaching provided. Pt to follow up with PCP, paper prescriptions sent with patient. Pt ambulated with PCT to private vehicle at approximately 1900
== END 2024-02-26 19:00 | disposition home or self-care (01) ==
LOC: ED 08:40 → AC 09:44
PROVIDERS: Admitting Provider Hospitalist; Emergency Provider Emergency Medicine; PCP Nurse Practitioner Family; Referring Provider Emergency Medicine; Visit Provider Hospitalist
DX: J96.01 Acute respiratory failure with hypoxia (principal); J44.1 Chronic obstructive pulmonary disease with (acute) exacerbation; F19.10 Other psychoactive substance abuse, uncomplicated; F17.210 Nicotine dependence, cigarettes, uncomplicated; Z11.52 Encounter for screening for COVID-19
CPT/HCPCS: 36415; 71045; 80053; 80305; 82805; 83605; 83880; 84484; 85025; 85610; 87633; 93005; 94640; 96374; 96376; 99285; G0378; J2919

== ENCOUNTER 2024-04-08 20:56 | Emergency (ER) | payer OTHER, MEDICAID, SELFPAY ==
[2024-02-26 10:47] VITALS: BMI 20.7
[2024-04-08 21:12] VITALS: BP 146/95; PULSE 102; RESP 16; TEMP 36.9; O2SAT 87; BMI 21.5
[2024-04-08 22:53] VITALS: BP 133/81; PULSE 46; RESP 20; TEMP 36.2; O2SAT 94
[2024-04-08 23:07] VITALS: PULSE 97
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
--- NOTE | 2024-04-09 03:40 | DI.RAD.S_ITS ---
PROCEDURE: XR TIBIA FIBULA LT 2V INDICATIONS: wound left anterior herrera, appears infected TECHNIQUE: 2 views of the tibia and fibula were acquired. COMPARISON: None. FINDINGS: No radiographic evidence of acute fracture, dislocation or high attenuation soft tissue foreign body. Nonspecific cortical thickening of the mid tibia diaphysis and similarly of the distal fibula diaphysis may be related to sequelae of old healed stress fracture although fibrous cortical defect, nonossifying fibroma or other lesion could have a similar appearance. 5 mm osseous protuberance pointing away from the joint at the proximal tibial metaphysis laterally commonly small osteochondroma. Degenerate changes of the talonavicular and calcaneocuboid joints partially imaged. Mild degenerative changes of the left knee with joint space narrowing and small osteophytes. Mild chondrocalcinosis calcifications medial greater than lateral compartments. IMPRESSION: No radiographic evidence of acute fracture. Nonspecific cortical thickening tibia diaphysis and distal fibula as discussed above. 5 mm osseous protuberance proximal tibial metaphysis commonly osteochondroma. Degenerate changes. Chondrocalcinosis. If symptoms persist or worsen, or there is high clinical suspicion of acute abnormality, MRI could be performed. Dictated by: Tyree Coronel M.D. on 04/09/2024 at 8:04 Approved by: Tyree Coronel M.D. on 04/09/2024 at 8:19
[2024-04-09 04:24] VITALS: PULSE 92; O2SAT 89
[2024-04-09 04:30] VITALS: PULSE 88; O2SAT 89
[2024-04-09 04:37] LABS: Add Manual Diff / Slide Review NO; Basophils Absolute Auto 0 /uL (0-100); Basophils Percent Auto 0.5 % (0-2); Eosinophils Absolute Auto 300 /uL (0-450); Eosinophils Percent Auto 3.2 % (2-4); Hematocrit 49.6 % (41-53); Hemoglobin 15.6 g/dL (13.5-17.5); Lymphocytes Absolute Auto 5400 /uL (1100-4500); Lymphocytes Percent Auto 59.3 % (25-40); Mean Corpuscular HGB Conc 31.5 % (30-36); Mean Corpuscular Hemoglobin 31.2 PG (26-34); Monocytes Absolute Auto 500 /uL (0-900); Monocytes Percent Auto 5.8 % (3-14); Neutrophils Absolute Auto 2800 /uL (1500-7000); Neutrophils Percent Auto 31.2 % (50-75); Platelet Count 194 X10^3/uL (150-400); Red Blood Cell Count 5.01 X10^6/uL (4.5-5.9); Red Cell Distribution Width 15.9 % (11.6-14.8); White Blood Cell Count 9.1 X10^3/uL (4.5-11.0)
[2024-04-09] MEDS: KETOROLAC 30 MG/ML VIAL 15 MG IV (04:44)
[2024-04-09] MEDS: VANCOMYCIN 1,250 MG/250 ML PIGGYBACK 250 MG IV (04:45)
[2024-04-09 04:49] LABS: Alanine Aminotransferase 80 IU/L (<50); Albumin 3.9 g/dL (3.5-5.0); Albumin Globulin Ratio 1.4 (1.0-2.8); Alkaline Phosphatase 92 U/L (38-126); Aspartate Aminotransferase 90 IU/L (17-59); BUN Creatinine Ratio 25.8 (6-22); Blood Urea Nitrogen 23 mg/dL (9-20); Calcium 9.4 mg/dL (8.4-10.2); Carbon Dioxide 36 mmol/L (22-32); Chloride 100 mmol/L (98-107); Estimated Glomerular Filt Rate > 60 mL/min (>60); Globulin 2.8 g/dL (1.7-4.1); Glucose 101 mg/dL (80-110); Potassium 4.5 mmol/L (3.4-5.1); Sodium 137 mmol/L (137-145); Total Protein 6.7 g/dL (6.3-8.2)
[2024-04-09 04:56] LABS: Erythrocyte Sedimentation Rate 1 MM/HR (0-15)
[2024-04-09 05:00] VITALS: PULSE 89; O2SAT 96
[2024-04-09 05:14] VITALS: BP 170/112; PULSE 90; O2SAT 96
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
[2024-04-09 05:26] LABS: C-Reactive Protein Quant < 0.5 mg/dL (<1.0); HEMOLYSIS 40 (0-50)
[2024-04-09 05:30] VITALS: PULSE 102; O2SAT 93
[2024-04-09 05:31] VITALS: BP 192/127; PULSE 113
[2024-04-09] MEDS: DOXYCYCLINE HYCLATE 100 MG TABLET PO (05:43)
--- NOTE | 2024-04-13 14:14 | CM.SWNOTE ---
ED AMUSEMENT PARK WORKER Follow Up Note: Patient is a 63yo male, currently unhoused with intermediate (staying in [place]), presented to the ED on 04/09/24 for a left leg wound, sent by his PCP. AMUSEMENT PARK WORKER was consulted for assistance with transportation, care coordination (referral sent to [facility]). ED AMUSEMENT PARK WORKER called pt and confirmed that pt is currently residing in [place] with a friend and is hopeful to relocate to [facility] soon. Per pt, he is not sure if he has Medicaid transport benefit and has not established appt with [facility]. ED AMUSEMENT PARK WORKER received consent from pt to call on his behalf to Wound clinic and [facility] Medicaid Transport. ED AMUSEMENT PARK WORKER called [facility] Medicaid Transport dispatch and it was confirmed that pt has the transportation benefit. Pt will need to have a [facility] address to have transport to [facility]. ED AMUSEMENT PARK WORKER called [facility] (ph# [phone], fax#[phone]), it was reported that pt referral has been accepted and their immigration services officer will call pt to schedule appt. ED AMUSEMENT PARK WORKER called pt and relayed the above information. Per patient, pt is staying temporarily at: [address] [place] [address]. ED AMUSEMENT PARK WORKER discussed scheduling with [facility] when they call him, also provided their number if pt does not receive a call. Pt also provided with [facility] Medicaid Transport number for future appointment/transport needs. Pt denied any other needs at this time and expressed that he feels more motivated to start on his medical needs. SAMUEL Kunz
== END 2024-04-09 05:48 | disposition home or self-care (01) ==
PROVIDERS: Emergency Provider Emergency Medicine; PCP Nurse Practitioner Family
DX: L08.9 Local infection of the skin and subcutaneous tissue, unspecified (principal); S81.802A Unspecified open wound, left lower leg, initial encounter; Z79.899 Other long term (current) drug therapy
CPT/HCPCS: 36415; 73590; 80053; 85025; 85651; 86140; 87040; 87070; 87077; 87186; 87205; 96365; 96375; 99284; J1885